=== PATIENT | female | born 1995 | race Caucasian/White ===

== ENCOUNTER 2018-01-01 00:57 | Emergency (ER) | payer OTHER ==
[2018-01-01 01:01] VITALS: PULSE 110
--- NOTE | 2018-01-01 01:50 | ED ---
General Adult HPI - General Chief complaint: Chest Pain Stated complaint: CHEST PAIN Time Seen by Provider: 01/01/18 01:00 Source: patient, RN notes reviewed Mode of arrival: ambulatory Limitations: no limitations - History of Present Illness Initial comments: This is a 22-year-old female presents emergency Department with left-sided chest pain there's been ongoing for years. Patient states it happened again tonight and it went away and currently she doesn't have any pain. Patient states she's not short of breath or having difficulty breathing. Patient states it normally comes and goes on its own and she never takes any medication for. Patient denies any recent fever chills or cough. Patient denies any injury or trauma. Patient denies any calf pain or leg swelling. - Related Data Previous Rx's Medication Instructions Recorded Ibuprofen [Motrin] 600 mg PO Q6HR PRN #20 tab 01/01/18 Allergies Allergy/AdvReac Type Severity Reaction Status Date / Time No Known Allergies Allergy Verified 01/01/18 01:01 Review of Systems ROS Statement: Those systems with pertinent positive or pertinent negative responses have been documented in the HPI. ROS Other: All systems not noted in ROS Statement are negative. Past Medical History Past Medical History: No Reported History History of Any Multi-Drug Resistant Organisms: None Reported Past Surgical History: No Surgical Hx Reported Past Psychological History: ADD/ADHD Smoking Status: Never smoker Past Alcohol Use History: None Reported Past Drug Use History: None Reported General Exam - General Exam Comments Initial Comments: GENERAL: Patient is well-developed and well-nourished. Patient is nontoxic and well- hydrated and is in no acute distress. ENT: Neck is soft and supple. No significant lymphadenopathy is noted. Oropharynx is clear. Moist mucous membranes. Neck has full range of motion without eliciting any pain. EYES: The sclera were anicteric and conjunctiva were pink and moist. Extraocular movements were intact and pupils were equal round and reactive to light. Eyelids were unremarkable. PULMONARY: Unlabored respirations. Good breath sounds bilaterally. No audible rales rhonchi or wheezing was noted. CARDIOVASCULAR: There is a regular rate and rhythm without any murmurs gallops or rubs. [id number] ABDOMEN: Soft and nontender with normal bowel sounds. No palpable organomegaly was noted. There is no palpable pulsatile mass. SKIN: Skin is clear with no lesions or rashes and otherwise unremarkable. NEUROLOGIC: Patient is alert and oriented x3. Cranial nerves II through XII are grossly intact. Motor and sensory are also intact. Normal speech, volume and content. Symmetrical smile.[id number] MUSCULOSKELETAL: Normal extremities with adequate strength and full range of motion. No lower extremity swelling or edema. No calf tenderness. LYMPHATICS: No significant lymphadenopathy is noted PSYCHIATRIC: Normal psychiatric evaluation. Limitations: no limitations Course Vital Signs 01/01/18 01/01/18 00:59 01:55 Temperature 98.7 F 99.0 F Pulse Rate 110 H Respiratory 18 16 Rate Blood Pressure 110/77 O2 Sat by Pulse 99 Oximetry Medical Decision Making - Medical Decision Making EKG shows a normal sinus rhythm at 87 bpm MS interval is 142 QRS is 76 QT intervals 346 QTC is 416. Patient's EKG shows no ST segment elevation or depression. Chest x-ray shows no acute abnormality. Patient's pain is reproducible I believe the chest wall pain. Disposition Clinical Impression: Chest wall pain Disposition: HOME SELF-CARE Condition: Good Instructions: Chest Wall Pain (ED) Prescriptions: Ibuprofen [Motrin] 600 mg PO Q6HR PRN #20 tab PRN Reason: For pain Is patient prescribed a controlled substance at d/c from ED?: No Referrals: Akhil Pearson MD [Primary Care Provider] - 1-2 days Time of Disposition: 02:43
[2018-01-01 01:59] VITALS: RESP 16
--- NOTE | 2018-01-01 02:32 | XR ---
EXAMINATION TYPE: XR chest 2V DATE OF EXAM: 01/01/2018 COMPARISON: NONE HISTORY: Chest pain TECHNIQUE: Frontal and lateral views of the chest are obtained. FINDINGS: Heart and mediastinum are normal. Lungs are clear. Diaphragm is normal. Bony thorax is nor mal. There are chest leads. IMPRESSION: Normal chest.
[2018-01-01 03:13] VITALS: BP 104/62; TEMP 97.8
== END 2018-01-01 03:18 | disposition home or self-care (01) ==
LOC: EC 00:57
DX: R07.89 Other chest pain (principal)
CPT/HCPCS: 71046; 93005; 99285

== ENCOUNTER 2018-12-05 15:57 | Emergency (ER) | payer OTHER ==
[2018-12-05 16:01] VITALS: BP 109/74; PULSE 82; RESP 18; TEMP 98.1
--- NOTE | 2018-12-05 16:23 | ED ---
General Adult HPI - General Chief complaint: Urogenital Stated complaint: 6 WEEKS PREG, POSS UTI Time Seen by Provider: 12/05/18 16:09 Source: patient, RN notes reviewed Mode of arrival: ambulatory Limitations: no limitations - History of Present Illness Initial comments: 22-year-old female presents to the emergency department for a chief complaint of possible UTI. Patient states she has had these symptoms for about one week. Patient states she is expressing urinary urgency as well as a burning with urination. Patient is complaining of suprapubic pressure as well. Denies any significant abdominal pain. No nausea or vomiting. Denies any back pain. Patient is currently 6 weeks . 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 Patient denies fevers or chills. Patient has not yet been tested for STDs. States she was tested 3 years ago and was negative. Patient has no other complaints at this time including shortness of breath, chest pain, abdominal pain, nausea or vomiting, headache, or visual emma nges. - Related Data Previous Rx's Medication Instructions Recorded Ibuprofen [Motrin] 600 mg PO Q6HR PRN #20 tab 01/01/18 Allergies Allergy/AdvReac Type Severity Reaction Status Date / Time No Known Allergies Allergy Verified 12/05/18 16:01 Review of Systems ROS Statement: Those systems with pertinent positive or pertinent negative responses have been documented in the HPI. ROS Other: All systems not noted in ROS Statement are negative. Past Medical History Past Medical History: No Reported History History of Any Multi-Drug Resistant Organisms: None Reported Past Surgical History: No Surgical Hx Reported Past Psychological History: ADD/ADHD Smoking Status: Never smoker Past Alcohol Use History: None Reported Past Drug Use History: None Reported General Exam Limitations: no limitations General appearance: alert, in no apparent distress Head exam: Present: atraumatic, normocephalic, normal inspection Eye exam: Present: normal appearance, PERRL, EOMI. Absent: scleral icterus, conjunctival injection, periorbital swelling ENT exam: Present: normal exam, mucous membranes moist Neck exam: Present: normal inspection, full ROM. Absent: tenderness, meningismus, lymphadenopathy Respiratory exam: Present: normal lung sounds bilaterally. Absent: respiratory distress, wheezes, rales, rhonchi, stridor Cardiovascular Exam: Present: regular rate, normal rhythm, normal heart sounds. Absent: systolic murmur, diastolic murmur, rubs, gallop, clicks GI/Abdominal exam: Present: soft, tenderness (Minimal suprapubic tenderness), normal bowel sounds. Absent: distended, guarding, rebound, rigid Neurological exam: Present: alert, oriented X3, CN II-XII intact Psychiatric exam: Present: normal affect, normal mood Course Vital Signs 12/05/18 15:59 Temperature 98.1 F Pulse Rate 82 Respiratory 18 Rate Blood Pressure 109/74 O2 Sat by Pulse 98 Oximetry Medical Decision Making - Medical Decision Making 22-year-old female presents to the emergency department for a chief complaint of dysuria and urinary frequency. No significant concern for STDs. Mild suprapubic tenderness. Urine is negative for evidence of infection. Therefore CBC CMP were ordered which are negative. Ultrasound shows viable IUP corresponding with 6 weeks 1 day. Patient denies any vaginal bleeding whatsoever. At this time urine will be cultured for gonorrhea chlamydia. Patient self swab for tremors which were negative. Gonorrhea and chlamydia are pending. Patient will follow up with [facility] OPERATOR HELPER as she is established with Dr. Leonard. She will return here if she has any worsening symptoms. - Lab Data Result diagrams: 12/05/18 17:08 12/05/18 17:08 Lab Results 12/05/18 12/05/18 12/05/18 Range/Units 16:20 16:20 16:20 WBC (3.8-10.6) k/uL RBC (3.80-5.40) m/uL Hgb (11.4-16.0) gm/dL Hct (34.0-46.0) % MCV (80.0-100.0) fL MCH (25.0-35.0) pg MCHC (31.0-37.0) g/dL RDW (11.5-15.5) % Plt Count (150-450) k/uL Neutrophils % % Lymphocytes % % Monocytes % % Eosinophils % % Basophils % % Neutrophils # (1.3-7.7) k/uL Lymphocytes # (1.0-4.8) k/uL Monocytes # (0-1.0) k/uL Eosinophils # (0-0.7) k/uL Basophils # (0-0.2) k/uL Sodium (137-145) mmol/L Potassium (3.5-5.1) mmol/L Chloride (98-107) mmol/L Carbon Dioxide (22-30) mmol/L Anion Gap mmol/L BUN (7-17) mg/dL Creatinine (0.52-1.04) mg/dL Est GFR (CKD-EPI)AfAm (>60 ml/min/1.73 sqM) Est GFR (CKD-EPI)NonAf (>60 ml/min/1.73 sqM) Glucose (74-99) mg/dL Calcium (8.4-10.2) mg/dL Total Bilirubin (0.2-1.3) mg/dL AST (14-36) U/L ALT (9-52) U/L Alkaline Phosphatase (38-126) U/L Total Protein (6.3-8.2) g/dL Albumin (3.5-5.0) g/dL HCG, Quant mIU/mL Urine Color Yellow Urine Appearance Cloudy H (Clear) Urine pH 5.5 (5.0-8.0) Ur Specific [place] 1.023 (1.001-1.035) Urine Protein Negative (Negative) Urine Glucose (UA) Negative (Negative) Urine Ketones Trace H (Negative) Urine Blood Negative (Negative) Urine Nitrite Negative (Negative) Urine Bilirubin Negative (Negative) Urine Urobilinogen <2.0 (<2.0) mg/dL Ur Leukocyte Esterase Negative (Negative) Urine RBC <1 (0-5) /hpf Urine WBC 1 (0-5) /hpf Ur Squamous Epith Cells 13 H (0-4) /hpf Urine Bacteria Occasional H (None) /hpf Urine Mucus Few H (None) /hpf Urine HCG, Qual Detected (Not Detectd) Trichomonas Ag (Rapid) Negative (Negative) 12/05/18 12/05/18 12/05/18 Range/Units 17:08 17:08 17:08 WBC 8.6 (3.8-10.6) k/uL RBC 4.47 (3.80-5.40) m/uL Hgb 14.2 (11.4-16.0) gm/dL Hct 41.0 (34.0-46.0) % MCV 91.9 (80.0-100.0) fL MCH 31.8 (25.0-35.0) pg MCHC 34.6 (31.0-37.0) g/dL RDW 12.3 (11.5-15.5) % Plt Count 380 (150-450) k/uL Neutrophils % 67 % Lymphocytes % 25 % Monocytes % 5 % Eosinophils % 1 % Basophils % 0 % Neutrophils # 5.7 (1.3-7.7) k/uL Lymphocytes # 2.1 (1.0-4.8) k/uL Monocytes # 0.5 (0-1.0) k/uL Eosinophils # 0.1 (0-0.7) k/uL Basophils # 0.0 (0-0.2) k/uL Sodium 138 (137-145) mmol/L Potassium 4.1 (3.5-5.1) mmol/L Chloride 105 (98-107) mmol/L Carbon Dioxide 22 (22-30) mmol/L Anion Gap 11 mmol/L BUN 9 (7-17) mg/dL Creatinine 0.50 L (0.52-1.04) mg/dL Est GFR (CKD-EPI)AfAm >90 (>60 ml/min/1.73 sqM) Est GFR (CKD-EPI)NonAf >90 (>60 ml/min/1.73 sqM) Glucose 78 (74-99) mg/dL Calcium 10.1 (8.4-10.2) mg/dL Total Bilirubin 0.8 (0.2-1.3) mg/dL AST 27 (14-36) U/L ALT 36 (9-52) U/L Alkaline Phosphatase 60 (38-126) U/L Total Protein 7.7 (6.3-8.2) g/dL Albumin 4.6 (3.5-5.0) g/dL HCG, Quant 03025.1 mIU/mL Urine Color Yellow Urine Appearance Clear (Clear) Urine pH 5.5 (5.0-8.0) Ur Specific [place] 1.022 (1.001-1.035) Urine Protein Negative (Negative) Urine Glucose (UA) Negative (Negative) Urine Ketones Negative (Negative) Urine Blood Negative (Negative) Urine Nitrite Negative (Negative) Urine Bilirubin Negative (Negative) Urine Urobilinogen <2.0 (<2.0) mg/dL Ur Leukocyte Esterase Negative (Negative) Urine RBC (0-5) /hpf Urine WBC (0-5) /hpf Ur Squamous Epith Cells (0-4) /hpf Urine Bacteria (None) /hpf Urine Mucus (None) /hpf Urine HCG, Qual (Not Detectd) Trichomonas Ag (Rapid) (Negative) Disposition Clinical Impression: Intrauterine Disposition: HOME SELF-CARE Condition: Good Instructions (If sedation given, give patient instructions): (ED) Additional Instructions: Please follow up for culture results 2 days. Please return here if you have any worsening symptoms. Otherwise follow-up with her OB in 1-2 days. Is patient prescribed a controlled substance at d/c from ED?: No Referrals: Akhil Pearson MD [Primary Care Provider] - 1-2 days Time of Disposition: 19:00
[2018-12-05 16:43] LABS: Appearance,Urine Cloudy (Clear); Bacteria,Urine Occasional /hpf; Bilirubin,Urine Negative (Negative); Blood,Urine Negative (Negative); Color,Urine Yellow; Glucose,Urine (UA) Negative (Negative); Ketones,Urine Trace (Negative); Leukocyte Esterase,Urine Negative (Negative); Mucus,Urine Few /hpf; Nitrite,Urine Negative (Negative); PH, Urine 5.5 (5.0-8.0); Protein,Urine Negative (Negative); RBC,Urine <1 /hpf (0-5); Specific Gravity,Urine 1.023 (1.001-1.035); Squamous Epithelial Cell,Urine 13 /hpf (0-4); Urobilinogen,Urine <2.0 mg/dL (<2.0); WBC,Urine 1 /hpf (0-5)
[2018-12-05] MEDS ORDERED: SODIUM CHLORIDE 0.9% 1,000 ML IV ONE (17:00)
[2018-12-05 17:21] LABS: Basophils % (A) 0 %; Eosinophils # (A) 0.1 k/uL (0-0.7); Eosinophils % (A) 1 %; HGB 14.2 gm/dL (11.4-16.0); Lymphocytes # (A) 2.1 k/uL (1.0-4.8); Lymphocytes % (A) 25 %; MCH 31.8 pg (25.0-35.0); MCHC 34.6 g/dL (31.0-37.0); MCV 91.9 fL (80.0-100.0); Mean Platelet Volume 6.1; Monocytes # (A) 0.5 k/uL (0-1.0); Monocytes % (A) 5 %; Neutrophils # (A) 5.7 k/uL (1.3-7.7); Neutrophils % (A) 67 %; Platelet Count 380 k/uL (150-450); RBC 4.47 m/uL (3.80-5.40); RDW 12.3 % (11.5-15.5); WBC 8.6 k/uL (3.8-10.6)
[2018-12-05 17:22] LABS: Appearance,Urine Clear (Clear); Bilirubin,Urine Negative (Negative); Blood,Urine Negative (Negative); Color,Urine Yellow; Glucose,Urine (UA) Negative (Negative); Ketones,Urine Negative (Negative); Leukocyte Esterase,Urine Negative (Negative); Nitrite,Urine Negative (Negative); PH, Urine 5.5 (5.0-8.0); Protein,Urine Negative (Negative); Specific Gravity,Urine 1.022 (1.001-1.035); Urobilinogen,Urine <2.0 mg/dL (<2.0)
[2018-12-05 17:33] LABS: ALT 36 U/L (9-52); AST 27 U/L (14-36); Albumin 4.6 g/dL (3.5-5.0); Alkaline Phosphatase 60 U/L (38-126); Anion Gap 11 mmol/L; Blood Urea Nitrogen 9 mg/dL (7-17); Calcium 10.1 mg/dL (8.4-10.2); Carbon Dioxide 22 mmol/L (22-30); Chloride 105 mmol/L (98-107); Glucose 78 mg/dL (74-99); Potassium 4.1 mmol/L (3.5-5.1); Sodium 138 mmol/L (137-145); Total Bilirubin 0.8 mg/dL (0.2-1.3); Total Protein 7.7 g/dL (6.3-8.2)
[2018-12-05 18:23] LABS: HCG,Quantitative Serum 58540.1 mIU/mL
--- NOTE | 2018-12-05 18:25 | US ---
EXAMINATION TYPE: Transabdominal DATE OF EXAM: 12/05/2018 6:01 PM COMPARISON: NONE CLINICAL HISTORY: pain. Pain possible UTI. EXAM PERFORMED: Transvaginal (TV) and Transabdominal (TA) EXAM MEASUREMENTS: GESTATIONAL AGE / DATING Physician Established: Not yet established ( Dates by LMP: (7 weeks/1 days) EDC: 07/23/2019 Dates by First Scan: No previous this is first scan Dates by Current Scan for: (6 weeks/1 days) EDC: 07/30/2019 MATERNAL ANATOMY Uterus: 9.9 x 4.5 x 6.8 cm Right Ovary: 2.5 x 2.8 x 2.4 cm Left Ovary: 2.5 x 1.1 x 1.6 cm Post CDS / Adnexa: wnl Presence of free fluid: no Presence of corpus luteal cyst: yes right 1.9 x 1.7 x 1.7cm Presence of subchorionic bleed: Yes 1.0 x .8 x 1.0cm. GESTATION / SURVEY CRL: 0.46 cm (6 weeks/1 days) Yolk Sac (normal less than 6mm): 3mm Heart Rate: 160 bpm Rhythm: Normal IUP: Viable IUP Beta HcG (if available): Not available at this time IMPRESSION: VIABLE IUP CORRESPONDING WITH SONOGRAPHIC DATING 6 WEEKS 1 DAY GESTATION AND EDC 07/30/2019.
[2018-12-06 14:47] LABS: N. gonorrhoeae,PCR Negative (Neg,Equiv); Neisseria Source Urine
[2018-12-06 14:55] LABS: C. trachomatis,PCR Negative (Neg,Equiv); Chlamydia trachomatis Source Urine
== END 2018-12-05 19:12 | disposition home or self-care (01) ==
LOC: EC 15:57
DX: O99.89 Other specified diseases and conditions complicating pregnancy, childbirth and the puerperium (principal); R30.0 Dysuria; R39.15 Urgency of urination; Z3A.01 Less than 8 weeks gestation of pregnancy
CPT/HCPCS: 36415; 76801; 76817; 80053; 81001; 81003; 81025; 84702; 85025; 87086; 87491; 87591; 87808; 96360; 99284

== ENCOUNTER 2018-12-30 18:19 | Emergency (ER) | payer OTHER ==
[2018-12-30 18:28] VITALS: PULSE 92
[2018-12-30] MEDS ORDERED: SODIUM CHLORIDE 0.9% 500 ML 500 ML IV STA (18:31)
--- NOTE | 2018-12-30 18:32 | ED ---
GI Bleed HPI - General Chief complaint: GI Bleed Stated complaint: Female Time Seen by Provider: 12/30/18 18:25 Source: patient Mode of arrival: ambulatory Limitations: no limitations - History of Present Illness Initial comments: 23-year-old female presenting today for chief complaint of blood in stools. Patient states she has history of constipation in the past however she feels she has been having increased bowel movements every other day. She states that they are hard at times painful to push out. Patient states she had a painful bowel movement today and noticed blood in his stool. Patient states it was a significant amount presents to the emergency room for evaluation. Patient states she has 100% sure this is not from her vagina. Patient denies any abdominal cramping or pain. Patient denies any nausea vomiting or any other associated symptoms. Patient does state that she has had some sediment in her urine is also concerned about that. Patient is a dysuria urgency frequency or hematuria. Patient has a scheduled appointment with FINANCIAL COMPLIANCE OFFICER on Tuesday. Remaining ROS (-). Upon arrival pt appears well. - Related Data Previous Rx's Medication Instructions Recorded Ibuprofen [Motrin] 600 mg PO Q6HR PRN #20 tab 01/01/18 Allergies Allergy/AdvReac Type Severity Reaction Status Date / Time No Known Allergies Allergy Verified 12/30/18 18:28 Review of Systems ROS Statement: Those systems with pertinent positive or pertinent negative responses have been documented in the HPI. ROS Other: All systems not noted in ROS Statement are negative. Past Medical History Past Medical History: No Reported History History of Any Multi-Drug Resistant Organisms: None Reported Past Surgical History: No Surgical Hx Reported Past Psychological History: ADD/ADHD Smoking Status: Never smoker Past Alcohol Use History: None Reported Past Drug Use History: None Reported General Exam - General Exam Comments Initial Comments: General: The patient is awake and alert, in no distress, and does not appear acutely ill. Eye: Pupils are equal, round and reactive to light, extra-ocular movements are intact. No nystagmus. There is normal conjunctiva bilaterally. No signs of icterus. Ears, nose, mouth and throat: There are moist mucous membranes and no oral lesions. Neck: The neck is supple, there is no tenderness or JVD. Cardiovascular: There is a regular rate and rhythm. No murmur, rub or gallop is appreciated. Respiratory: Lungs are clear to auscultation, respirations are non-labored, breath sounds are equal. No wheezes, stridor, rales, or rhonchi. Gastrointestinal: Soft, non-distended, non-tender abdomen without masses or organomegaly noted. There is no rebound or guarding present. No CVA tenderness. Bowel sounds are unremarkable. Rectal exam revealed a mild distal to the dentate line no gross blood that is tender to touch at the 6oclock position, it does not appear thrombosed, soft. Musculoskeletal: Normal ROM, no tenderness. Strength 5/5. Sensation intact. Pulses equal bilaterally 2+. Neurological: A&O x 3. CN II-XII intact, There are no obvious motor or sensory deficits. Coordination appears grossly intact. Speech is normal. Skin: Skin is warm and dry and no rashes or lesions are noted. Psychiatric: Cooperative, appropriate mood & affect, normal judgment. Limitations: no limitations Course Vital Signs 12/30/18 18:25 Temperature 98.0 F Pulse Rate 92 Respiratory 16 Rate Blood Pressure 121/86 O2 Sat by Pulse 100 Oximetry Medical Decision Making - Medical Decision Making Well-appearing 23-year-old female presenting today for chief complaint of rectal pain. Patient states that she has had history of constipation. Patient states she's had large bowel movement which causes her to have rectal bleeding. Patient states she is positive this is not from her vagina. Patient states it appeared kind of heavy and she was concerned and presents emergency room for evaluation. Upon evaluation there is a hemorrhoid at the 6 o'clock position does not appear thrombosed mildly tender to palpation. No simone blood on examination. No active bleeding signs. Hemoglobin stable. Heart rate within normal limits. Patient appears well hemodynamically stable at this time for patient is stable for discharge with instruction on sitz baths and GI follow-up. Patient is agreeable care plan discharge today no further questions I discussed the case by attending provider Dr. Shaikh who was agreeable with care plan and discharge. - Lab Data Result diagrams: 12/30/18 19:04 12/30/18 19:04 Lab Results 12/30/18 12/30/18 12/30/18 Range/Units 19:04 19:04 19:04 WBC 10.2 (3.8-10.6) k/uL RBC 4.19 (3.80-5.40) m/uL Hgb 13.1 (11.4-16.0) gm/dL Hct 38.1 (34.0-46.0) % MCV 91.0 (80.0-100.0) fL MCH 31.4 (25.0-35.0) pg MCHC 34.5 (31.0-37.0) g/dL RDW 12.7 (11.5-15.5) % Plt Count 405 (150-450) k/uL Neutrophils % 78 % Lymphocytes % 14 % Monocytes % 4 % Eosinophils % 1 % Basophils % 0 % Neutrophils # 7.9 H (1.3-7.7) k/uL Lymphocytes # 1.5 (1.0-4.8) k/uL Monocytes # 0.4 (0-1.0) k/uL Eosinophils # 0.1 (0-0.7) k/uL Basophils # 0.0 (0-0.2) k/uL Sodium 139 (137-145) mmol/L Potassium 3.8 (3.5-5.1) mmol/L Chloride 110 H (98-107) mmol/L Carbon Dioxide 22 (22-30) mmol/L Anion Gap 7 mmol/L BUN 5 L (7-17) mg/dL Creatinine 0.46 L (0.52-1.04) mg/dL Est GFR (CKD-EPI)AfAm >90 (>60 ml/min/1.73 sqM) Est GFR (CKD-EPI)NonAf >90 (>60 ml/min/1.73 sqM) Glucose 88 (74-99) mg/dL Calcium 9.6 (8.4-10.2) mg/dL Total Bilirubin 0.5 (0.2-1.3) mg/dL AST 20 (14-36) U/L ALT 13 (9-52) U/L Alkaline Phosphatase 50 (38-126) U/L Total Protein 7.2 (6.3-8.2) g/dL Albumin 4.3 (3.5-5.0) g/dL Urine Color Urine Appearance (Clear) Urine pH (5.0-8.0) Ur Specific [place] (1.001-1.035) Urine Protein (Negative) Urine Glucose (UA) (Negative) Urine Ketones (Negative) Urine Blood (Negative) Urine Nitrite (Negative) Urine Bilirubin (Negative) Urine Urobilinogen (<2.0) mg/dL Ur Leukocyte Esterase (Negative) Urine RBC (0-5) /hpf Urine WBC (0-5) /hpf Ur Squamous Epith Cells (0-4) /hpf Urine Bacteria (None) /hpf Urine Mucus (None) /hpf Blood Type A Positive Blood Type Recheck [facility] ONLY 12/30/18 Range/Units 19:04 WBC (3.8-10.6) k/uL RBC (3.80-5.40) m/uL Hgb (11.4-16.0) gm/dL Hct (34.0-46.0) % MCV (80.0-100.0) fL MCH (25.0-35.0) pg MCHC (31.0-37.0) g/dL RDW (11.5-15.5) % Plt Count (150-450) k/uL Neutrophils % % Lymphocytes % % Monocytes % % Eosinophils % % Basophils % % Neutrophils # (1.3-7.7) k/uL Lymphocytes # (1.0-4.8) k/uL Monocytes # (0-1.0) k/uL Eosinophils # (0-0.7) k/uL Basophils # (0-0.2) k/uL Sodium (137-145) mmol/L Potassium (3.5-5.1) mmol/L Chloride (98-107) mmol/L Carbon Dioxide (22-30) mmol/L Anion Gap mmol/L BUN (7-17) mg/dL Creatinine (0.52-1.04) mg/dL Est GFR (CKD-EPI)AfAm (>60 ml/min/1.73 sqM) Est GFR (CKD-EPI)NonAf (>60 ml/min/1.73 sqM) Glucose (74-99) mg/dL Calcium (8.4-10.2) mg/dL Total Bilirubin (0.2-1.3) mg/dL AST (14-36) U/L ALT (9-52) U/L Alkaline Phosphatase (38-126) U/L Total Protein (6.3-8.2) g/dL Albumin (3.5-5.0) g/dL Urine Color Yellow Urine Appearance Cloudy H (Clear) Urine pH 5.5 (5.0-8.0) Ur Specific [place] 1.038 H (1.001-1.035) Urine Protein Trace H (Negative) Urine Glucose (UA) Negative (Negative) Urine Ketones Trace H (Negative) Urine Blood Negative (Negative) Urine Nitrite Negative (Negative) Urine Bilirubin Negative (Negative) Urine Urobilinogen <2.0 (<2.0) mg/dL Ur Leukocyte Esterase Trace H (Negative) Urine RBC 1 (0-5) /hpf Urine WBC 4 (0-5) /hpf Ur Squamous Epith Cells 4 (0-4) /hpf Urine Bacteria Occasional H (None) /hpf Urine Mucus Moderate H (None) /hpf Blood Type Blood Type Recheck Disposition Clinical Impression: Hemorrhoid, Rectal bleeding Disposition: HOME SELF-CARE Condition: Good Instructions (If sedation given, give patient instructions): Hemorrhoids (ED) Additional Instructions: Please use medication as discussed. Please follow-up with family doctor in the next 2 days, use sitz baths as discussed. Please return to emergency room if the symptoms increase or worsen or for any other concerns. Is patient prescribed a controlled substance at d/c from ED?: No Referrals: Akhil Pearson MD [Primary Care Provider] - 1-2 days Shan Dueñas MD [STAFF PHYSICIAN] - 1-2 days Time of Disposition: 20:04
[2018-12-30 19:16] LABS: Basophils % (A) 0 %; Eosinophils # (A) 0.1 k/uL (0-0.7); Eosinophils % (A) 1 %; HCT 38.1 % (34.0-46.0); HGB 13.1 gm/dL (11.4-16.0); Lymphocytes # (A) 1.5 k/uL (1.0-4.8); Lymphocytes % (A) 14 %; MCH 31.4 pg (25.0-35.0); MCHC 34.5 g/dL (31.0-37.0); Monocytes # (A) 0.4 k/uL (0-1.0); Monocytes % (A) 4 %; Neutrophils # (A) 7.9 k/uL (1.3-7.7); Neutrophils % (A) 78 %; Platelet Count 405 k/uL (150-450); RBC 4.19 m/uL (3.80-5.40); RDW 12.7 % (11.5-15.5); WBC 10.2 k/uL (3.8-10.6)
[2018-12-30 19:27] LABS: ALT 13 U/L (9-52); AST 20 U/L (14-36); Albumin 4.3 g/dL (3.5-5.0); Alkaline Phosphatase 50 U/L (38-126); Anion Gap 7 mmol/L; Blood Urea Nitrogen 5 mg/dL (7-17); Calcium 9.6 mg/dL (8.4-10.2); Carbon Dioxide 22 mmol/L (22-30); Chloride 110 mmol/L (98-107); Glucose 88 mg/dL (74-99); Potassium 3.8 mmol/L (3.5-5.1); Sodium 139 mmol/L (137-145); Total Bilirubin 0.5 mg/dL (0.2-1.3); Total Protein 7.2 g/dL (6.3-8.2)
[2018-12-30 19:29] LABS: Appearance,Urine Cloudy (Clear); Bacteria,Urine Occasional /hpf; Bilirubin,Urine Negative (Negative); Blood,Urine Negative (Negative); Color,Urine Yellow; Glucose,Urine (UA) Negative (Negative); Ketones,Urine Trace (Negative); Leukocyte Esterase,Urine Trace (Negative); Mucus,Urine Moderate /hpf; Nitrite,Urine Negative (Negative); PH, Urine 5.5 (5.0-8.0); Protein,Urine Trace (Negative); RBC,Urine 1 /hpf (0-5); Specific Gravity,Urine 1.038 (1.001-1.035); Squamous Epithelial Cell,Urine 4 /hpf (0-4); Urobilinogen,Urine <2.0 mg/dL (<2.0); WBC,Urine 4 /hpf (0-5)
[2018-12-30 20:25] VITALS: BP 122/78; RESP 18; TEMP 98.2
== END 2018-12-30 20:23 | disposition home or self-care (01) ==
LOC: EC 18:19
DX: K64.9 Unspecified hemorrhoids (principal); Z87.19 Personal history of other diseases of the digestive system; Z53.8 Procedure and treatment not carried out for other reasons
CPT/HCPCS: 36415; 80053; 81001; 85025; 86900; 86901; 99284

== ENCOUNTER → 2019-04-04 | Outpatient (CLI) | payer OTHER ==
[2019-04-04 12:44] LABS: HCT 33.5 % (34.0-46.0); HGB 11.5 gm/dL (11.4-16.0); MCH 32.8 pg (25.0-35.0); MCHC 34.4 g/dL (31.0-37.0); MCV 95.4 fL (80.0-100.0); Mean Platelet Volume 6.5; Platelet Count 436 k/uL (150-450); RBC 3.51 m/uL (3.80-5.40); RDW 14.3 % (11.5-15.5); WBC 11.3 k/uL (3.8-10.6)
[2019-04-04 19:48] LABS: African American GFR (CKD) 158.1 (60.0-200.0); Non-African American GFR(CKD) 136.4 (60.0-200.0)
[2019-04-04 20:16] LABS: Hepatitis B Surface Antigen Non-Reactive (Non-Reactive)
[2019-04-04 20:26] LABS: HIV 1 AB Non-Reactive (Non-Reactive); HIV 2 AB Non-Reactive (Non-Reactive); HIV AB P24 Non-Reactive (Non-Reactive); HIV P24 AG Non-Reactive (Non-Reactive)
== END | disposition home or self-care (01) ==
LOC: LABWHC1 10:36
PROVIDERS: ATTEND Obstetrics & Gynecology
DX: Z34.82 Encounter for supervision of other normal pregnancy, second trimester (principal)
CPT/HCPCS: 36415; 82565; 82950; 85027; 86762; 86780; 86850; 86900; 86901; 87340; 87390

== ENCOUNTER 2019-05-21 21:00 | Outpatient (CLI) | payer OTHER ==
[2019-05-21 22:03] VITALS: BP 110/66; PULSE 86; RESP 16; TEMP 97.9
--- NOTE | 2019-06-13 08:08 | P.MSEPDOC ---
Presenting Problems - Arrival Data Date of Arrival on Unit: 05/21/19 Time of Arrival on Unit: 21:00 Mode of Transport: Ambulatory - Complaint OB-Reason for Admission/Chief Complaint: Pain Comment: Patient noted some "weird whitish discharge" this evening, that she thinks she lost her mucus plug and she has been a "little crampy" Medical History - Information : 2 Para: 1 Term: 1 : 0 Abortions: Spontaneous or Elective: 0 Number of Living Children: 1 - Gestational Age Gestational Age by LEXUS (wks/days): 31 Weeks and 0 Days Review of Systems - Review of Systems Constitutional: No problems Breast: No problems ENT: No problems Cardiovascular: No problems Respiratory: No problems Gastrointestinal: No problems Genitourinary: No problems Musculoskeletal: No problems Neurological: No problems Skin: No problems Vital Signs - Temperature Temperature: 97.9 F Temperature Source: Temporal Artery Scan - Pulse Pulse Oximetery Pulse Rate: 86 Pulse Assessment Method: Pulse Oximetry - Respirations Respiratory Rate: 16 Oxygen Delivery Method: Room Air - Blood Pressure Sitting Blood Pressure: 110/66 Blood Pressure Mean: 80 Blood Pressure Source: Automatic Cuff Medical Screen Scoring (Pre) - Cervical Exam Dilation: 0 cm = 0 Membranes: Intact - Uterine Contractions Frequency: N/A Duration: N/A Intensity: N/A - Maternal Vital Signs Maternal Temperature: N/A Maternal Blood Pressure: N/A Signs of Preeclampsia: N/A Maternal Respirations: N/A - Maternal Trauma Maternal Trauma: N/A - Assessment - Baby A Baseline FHR: 140 Heart Rate - NICHD Category: Category I (Normal) = 0 NST: Reactive Position: N/A Station: N/A - Total Score - Baby A Total Score - Baby A: 0 - Total Score - Baby B Total Score - Baby B: 0 - Total Score - Baby C Total Score - Baby C: 0 - Level of Risk - Baby A Level of Risk - Baby A: Low (0-5) - Level of Risk - Baby B Level of Risk - Baby B: Low (0-5) - Level of Risk - Baby C Level of Risk - Baby C: Low (0-5) Physician Notification (Pre) - Physician Notified Physician Notified Date: 05/21/19 Physician Notified Time: 21:40 Physician/Practitioner Notifed:: Dr. Riley New Order Received: Yes - Notification Comment Comment: Orders to encourage patient to drink more water, give patient a glass of water and then discharge patient home with instructions, patient to keep regularly scheduled appointment with Dr. Cameron for 05/28 Disposition - Disposition OB Disposition: Discharge to home, Written follow up instructions reviewed Discharge Date: 05/21/19 Discharge Time: 21:50 I agree with the RN Medical Screening Exam: Yes Risk & Benefit of care provided described in d/c instruction: Yes Diagnosis: FALSE LABOR BEFORE 37 COMPLETED WEEKS OF GEST, THIRD TRI
== END 2019-05-21 21:50 | disposition home or self-care (01) ==
LOC: FBPOP 21:00
PROVIDERS: ATTEND Obstetrics & Gynecology
DX: O47.03 False labor before 37 completed weeks of gestation, third trimester (principal); Z3A.31 31 weeks gestation of pregnancy
CPT/HCPCS: 59025; G0463; 99213

== ENCOUNTER 2019-05-30 20:55 | Outpatient (CLI) | payer OTHER ==
[2019-05-30 22:16] VITALS: BP 116/70; PULSE 90; RESP 18; TEMP 96.3
--- NOTE | 2019-05-31 00:04 | P.MSEPDOC ---
Presenting Problems - Arrival Data Date of Arrival on Unit: 05/30/19 Time of Arrival on Unit: 20:55 Mode of Transport: Wheelchair - Complaint OB-Reason for Admission/Chief Complaint: Pain Comment: abd pain and cramping for last 1/2 hour Medical History - Information : 2 Para: 1 Term: 1 : 0 Abortions: Spontaneous or Elective: 0 Number of Living Children: 1 - Gestational Age Gestational Age by LEXUS (wks/days): 32 Weeks and 2 Days - History Complications: Prior Review of Systems - Review of Systems Constitutional: No problems Breast: No problems ENT: No problems Cardiovascular: No problems Respiratory: No problems Gastrointestinal: No problems Genitourinary: No problems Musculoskeletal: No problems Neurological: No problems Skin: No problems Vital Signs - Temperature Temperature: 96.3 F Temperature Source: Temporal Artery Scan - Pulse Right Brachial Pulse Rate: 90 Pulse Assessment Method: Automatic Cuff - Respirations Respiratory Rate: 18 Oxygen Delivery Method: Room Air O2 Sat by Pulse Oximetry: 100 - Blood Pressure Right Arm Blood Pressure: 116/70 Blood Pressure Mean: 85 Blood Pressure Source: Automatic Cuff Medical Screen Scoring (Pre) - Cervical Exam Dilation: Exam Deferred Membranes: Intact - Uterine Contractions Frequency: Scheduled / = 6 Duration: N/A Intensity: N/A - Maternal Vital Signs Maternal Temperature: N/A Maternal Blood Pressure: N/A Signs of Preeclampsia: N/A Maternal Respirations: N/A - Maternal Trauma Maternal Trauma: N/A - Assessment - Baby A Baseline FHR: 145 Heart Rate - NICHD Category: Category I (Normal) = 0 NST: Reactive Position: N/A Station: N/A - Total Score - Baby A Total Score - Baby A: 6 - Total Score - Baby B Total Score - Baby B: 6 - Total Score - Baby C Total Score - Baby C: 6 - Level of Risk - Baby A Level of Risk - Baby A: Medium (6-9) - Level of Risk - Baby B Level of Risk - Baby B: Medium (6-9) - Level of Risk - Baby C Level of Risk - Baby C: Medium (6-9) Physician Notification (Pre) - Physician Notified Physician Notified Date: 05/30/19 Physician Notified Time: 21:28 Physician/Practitioner Notifed:: Dr. Hunt Spoke With: Dr. Hunt New Order Received: Yes - Notification Comment Comment: Dr. Hunt notified of pt's previous c/s, discharge pt home, increase oral fluids, follow up at next scheduled appt Disposition - Disposition OB Disposition: Discharge to home Discharge Date: 05/30/19 Discharge Time: 21:40 I agree with the RN Medical Screening Exam: Yes Risk & Benefit of care provided described in d/c instruction: Yes Diagnosis: FALSE LABOR BEFORE 37 COMPLETED WEEKS OF GEST, THIRD TRI
== END 2019-05-30 21:40 | disposition home or self-care (01) ==
LOC: FBPOP 20:55
PROVIDERS: ATTEND Obstetrics & Gynecology
DX: O47.03 False labor before 37 completed weeks of gestation, third trimester (principal); Z3A.32 32 weeks gestation of pregnancy
CPT/HCPCS: 59025; G0463; 99213

== ENCOUNTER 2019-07-02 18:18 | Outpatient (CLI) | payer OTHER ==
[2019-07-02 19:07] VITALS: BP 133/73; PULSE 95; RESP 18; TEMP 97.2
--- NOTE | 2019-07-03 01:15 | P.MSEPDOC ---
Presenting Problems - Arrival Data Date of Arrival on Unit: 07/02/19 Time of Arrival on Unit: 18:18 Mode of Transport: Ambulatory - Complaint OB-Reason for Admission/Chief Complaint: Other Comment: Pt states she has had some dampness since yesterday Medical History - Information : 2 Para: 1 Term: 1 : 0 Abortions: Spontaneous or Elective: 0 Number of Living Children: 1 - Gestational Age Gestational Age by LEXUS (wks/days): 37 Weeks and 0 Days Review of Systems - Review of Systems Constitutional: No problems Breast: No problems ENT: No problems Cardiovascular: No problems Respiratory: No problems Gastrointestinal: No problems Genitourinary: No problems Musculoskeletal: No problems Neurological: No problems Skin: No problems Vital Signs - Temperature Temperature: 97.2 F Temperature Source: Temporal Artery Scan - Pulse Right Supine Pulse Rate: 95 Pulse Assessment Method: Automatic Cuff - Respirations Respiratory Rate: 18 Oxygen Delivery Method: Room Air O2 Sat by Pulse Oximetry: 100 - Blood Pressure Right Arm Blood Pressure: 133/73 Blood Pressure Mean: 93 Blood Pressure Source: Automatic Cuff Medical Screen Scoring (Pre) - Cervical Exam Dilation: Exam Deferred Effacement: Exam Deferred Membranes: Intact - Uterine Contractions Frequency: N/A - Maternal Vital Signs Maternal Temperature: N/A Maternal Blood Pressure: N/A Signs of Preeclampsia: N/A Maternal Respirations: N/A - Maternal Trauma Maternal Trauma: N/A - Assessment - Baby A Baseline FHR: 145 Heart Rate - NICHD Category: Category I (Normal) = 0 NST: Reactive Position: N/A Station: N/A - Total Score - Baby A Total Score - Baby A: 0 - Total Score - Baby B Total Score - Baby B: 0 - Total Score - Baby C Total Score - Baby C: 0 - Level of Risk - Baby A Level of Risk - Baby A: Low (0-5) - Level of Risk - Baby B Level of Risk - Baby B: Low (0-5) - Level of Risk - Baby C Level of Risk - Baby C: Low (0-5) Physician Notification (Pre) - Physician Notified Physician Notified Date: 07/02/19 Physician Notified Time: 18:58 New Order Received: Yes - Notification Comment Comment: Dr Hunt given report, Amnisure negative, no contractions, NST reactive. Disposition - Disposition OB Disposition: Discharge to home, Written follow up instructions reviewed Discharge Date: 07/02/19 Discharge Time: 19:05 I agree with the RN Medical Screening Exam: Yes Risk & Benefit of care provided described in d/c instruction: Yes Diagnosis: RELATED CONDITIONS, UNSPECIFIED, THIRD TRIMESTER
== END 2019-07-02 19:05 | disposition home or self-care (01) ==
LOC: FBPOP 18:18
PROVIDERS: ATTEND Obstetrics & Gynecology
DX: O26.93 Pregnancy related conditions, unspecified, third trimester (principal); Z3A.37 37 weeks gestation of pregnancy
CPT/HCPCS: 59025; 84112; G0463; 99213

== ENCOUNTER 2019-07-06 17:02 | Outpatient (CLI) | payer OTHER | END 2019-07-06 17:52 | disposition home or self-care (01) | LOC: FBPOP 17:02 | PROVIDERS: ATTEND Obstetrics & Gynecology | DX: O36.8190 Decreased fetal movements, unspecified trimester, not applicable or unspecified (principal) | CPT/HCPCS: 59025; G0463; 99213 ==

== ENCOUNTER 2019-07-18 06:29 | Inpatient (IN) | payer OTHER ==
[2019-07-16 13:46] VITALS: BMI 34.7
--- NOTE | 2019-07-17 17:51 | P.HPOB ---
History of Present Illness H&P Date: 07/17/19 Chief Complaint: Intrauterine at term: Previous section Sandy is a 23-year-old female 2 para 1 having a repeat section. Risks/benefits/alternatives to this procedure were discussed with the patient in detail and all questions were answered for her prior to proceeding to the operating room. Her course otherwise has been generally unremarkable and she is feeling well at this time. Past Medical History Past Medical History: No Reported History Additional Past Medical History / Comment(s): Sl edema ankles. History of Any Multi-Drug Resistant Organisms: None Reported Past Surgical History: Section Past Anesthesia/Blood Transfusion Reactions: No Reported Reaction Smoking Status: Never smoker - Past Family History Mother Family Medical History: No Reported History Medications and Allergies Home Medications Medication Instructions Recorded Confirmed Type Pnv No.95/Ferrous Fum/Folic AC 1 each PO DAILY 05/21/19 07/16/19 History [ Multivitamin Tablet] Allergies Allergy/AdvReac Type Severity Reaction Status Date / Time No Known Allergies Allergy Verified 07/16/19 13:24 Exam Osteopathic Statement: *. No significant issues noted on an osteopathic structural exam other than those noted in the History and Physical/Consult. - OBG Physical Exam Breast: both: normal (no masses) Abdomen: bowel sounds normal, no diffuse tenderness, no bruit present, no guarding noted, no hepatomegaly, no splenomegaly, no mass Vulva: both: normal Vagina: normal moisture, no discharge Cervix: no lesion, no discharge Uterus: normal size, normal contour Adnexa: both: normal Anus/Rectum: normal perianal skin, no rectal mass, no hemorrhoids, heme negative
[2019-07-18] MEDS ORDERED: CITRIC ACID-SODIUM CITRATE 15 ML CUP PO ONE (06:44)
[2019-07-18 06:58] LABS: Basophils % (A) 0 %; Eosinophils # (A) 0.2 k/uL (0-0.7); Eosinophils % (A) 2 %; HCT 35.6 % (34.0-46.0); HGB 12.8 gm/dL (11.4-16.0); Lymphocytes # (A) 1.5 k/uL (1.0-4.8); Lymphocytes % (A) 15 %; MCH 34.4 pg (25.0-35.0); MCV 95.5 fL (80.0-100.0); Mean Platelet Volume 5.2; Monocytes # (A) 0.6 k/uL (0-1.0); Monocytes % (A) 6 %; Neutrophils # (A) 7.2 k/uL (1.3-7.7); Neutrophils % (A) 74 %; Platelet Count 424 k/uL (150-450); RBC 3.73 m/uL (3.80-5.40); RDW 13.3 % (11.5-15.5); WBC 9.6 k/uL (3.8-10.6)
[2019-07-18] MEDS: LACTATED RINGERS 1,000 ML IV SCH ×3 (08:05→17:56)
[2019-07-18] MEDS ORDERED: ePHEDrine SULFATE/0.9% NACL/PF 50 MG/5 ML SYRINGE IV ONE (08:23)
[2019-07-18] MEDS ORDERED: ONDANSETRON 4 MG/2 ML VIAL ONE (08:23)
[2019-07-18] MEDS ORDERED: OXYTOCIN 10 UNIT/ML 1 ML VIAL ONE (08:23)
[2019-07-18] MEDS ORDERED: MORPHINE SULFATE (PF) 0.3 MG/0.3 ML SYR ONE (08:23)
[2019-07-18] MEDS ORDERED: NALBUPHINE 10 MG/ML (1 ML AMP) ONE (08:23)
[2019-07-18] MEDS ORDERED: KETOROLAC 30 MG/ML 1 ML VIAL ONE (08:23)
[2019-07-18] MEDS ORDERED: CELLULOSE,OXIDIZED 1 EACH EACH MISCELLANE ONE (08:45)
[2019-07-18] MEDS ORDERED: ZOLPIDEM 5 MG TAB PO PRN (09:16)
[2019-07-18] MEDS ORDERED: diphenhydrAMINE 50 MG CAP PO PRN (09:16)
[2019-07-18] MEDS ORDERED: METOCLOPRAMIDE 5 MG/ML 2 ML VIAL IVP PRN (09:16)
[2019-07-18] MEDS ORDERED: diphenhydrAMINE 50 MG/ML 1 ML VIAL IVP PRN ×2 (09:16)
[2019-07-18] MEDS ORDERED: ACETAMINOPHEN TAB 325 MG TAB PO PRN (09:16)
[2019-07-18] MEDS ORDERED: NALOXONE 0.4 MG/ML 1 ML VIAL IV PRN (09:16)
[2019-07-18] MEDS ORDERED: HYDROcodone/APAP 7.5-325MG 1 EACH TAB PO PRN (09:16)
[2019-07-18] MEDS ORDERED: ONDANSETRON 4 MG/2 ML VIAL IVP PRN (09:16)
[2019-07-18] MEDS ORDERED: diphenhydrAMINE 25 MG CAP PO PRN (09:16)
--- NOTE | 2019-07-18 09:27 | P.OP ---
Date of Procedure: 07/18/19 Preoperative Diagnosis: Intrauterine at term: Prior section Postoperative Diagnosis: Same with significant adhesions Procedure(s) Performed: Repeat low transverse section and lysis of adhesions Anesthesia: spinal Surgeon: Donovan Cameron Appraiser Art #1: Salina Riley Estimated Blood Loss (ml): 800 Pathology: none sent Condition: stable Disposition: floor Operative Findings: Female scores of 8 and 9 at one and 5 minutes respectively and weight was 7 lbs. 14 oz. Significant adhesions of omentum to anterior abdominal wall and uterus as well as bladder being very high and this lesion's of the lateral abdominal sidewalls down onto the uterine body via the peritoneum Description of Procedure: Patient was taken to the operating suite where a spinal anesthetic was found be adequate. She was prepped and draped in the normal sterile fashion and placed in the dorsal supine position with leftward tilt. Initially a Pfannenstiel skin incision was made and this incision was then carried through to the underlying layer of the fascia with the second knife. Fascia was then nicked in the midline and this opening was then extended extended laterally with Mejia scissors. Superior and inferior aspect of this incision were then grasped tented up and lung and sharply dissected off the operative field. Immediately was noted omentum coming through the fascial layer upon initial dissection and this omentum was adherent to the anterior abdominal wall and peritoneum. Very careful operative dissection was then done verifying bowel was clear of the area and then trying to dissect inferiorly the peritoneum and omentum were adherent down onto the lateral sidewalls of the abdomen and the bladder was adherent superiorly and onto the lateral portions of the uterus. Normal dissection in th e midline to reduce the bladder out of the operative field was not going to work therefore taking the area of scarring and using the Metzenbaum scissors and careful dissection of the scar tissue and peritoneum away from the side of the uterus on both the right and left side was then performed a small partial thickness defect in the uterus did occur during this process just trying to move the omentum and bowel away from the uterus to get it out of the operative field. This was repaired without difficulty and easily was repaired during the closure. Once this was accomplished a bladder blade was placed and a low transverse incision on the uterus was done. The incision was fully developed with a hemostat and then extended bluntly. Due to the limited ability to move the muscles and scar tissue laterally on the head was not coming easily out of the uterine incision therefore a vacuum was placed carefully and inflated to the green area and with no pop offs and using it for less than 15 seconds we are able to guide the head through the incision with pressure on the fundus. Neck was then removed no lacerations or contusions were noted anterior posterior shoulders were then easily delivered followed by the remainder of the baby. Umbilical cord was then clamped cut usual fashion mouth nares bulb suctioned and nursery personnel was present to some care. Placenta was then delivered intact and Pitocin was added to the IV. Uterus was then exteriorized cleared of clots and debris and closed in 2 layers with 0 Vicryl suture. On the right-hand side of the incision on the uterus there was a partial defect which was easily closed using running 0 Vicryl suture and once excellent hemostasis was obtained multiple verifications of clear yellow urine were made and then blood and debris was suctioned from the posterior cul-de-sac. Again inspecting incision line noting it to be dry and without defect uterus was reinserted the abdomen and piece of Interceed was placed over the incision line. Bovie cautery was then used to dissect the omentum off of the anterior abdominal wall on its attachments to the peritoneum and then due to the omentum coming through the peritoneum hemostats were used to delineate the perineum and it was closed with some of the muscle in a running fashion to reapproximate this area to try and keep the omentum from herniating through. Once this was accomplished fascial layer was closed with 0 Vicryl suture one layer of 3-0 Vicryl was placed in deep subcuticular tissues reapproximate the skin Bovie cautery dissection of the underlying tissues was done to free the skin layer so that during closure of the skin using 3-0 Vicryl subcuticularly incision closed well and easily. At the conclusion of the procedure, sponge, lap, needle counts were all correct 2. Patient was then taken to the recovery room in stable and satisfactory condition. Clear yellow urine is again noted at the conclusion of the procedure.
[2019-07-18] MEDS ORDERED: LACTATED RINGERS 1,000 ML IV SCH (09:30)
[2019-07-18] MEDS: KETOROLAC 30 MG/ML 1 ML VIAL IVP PRN (22:01)
[2019-07-19] MEDS: SENNOSIDES-DOCUSATE SODIUM 1 EACH TAB PO SCH ×3 (01:17→20:07)
[2019-07-19] MEDS: KETOROLAC 30 MG/ML 1 ML VIAL IVP PRN ×2 (03:45→10:59)
--- NOTE | 2019-07-19 05:56 | P.PN ---
Progress Note - Text Progress Note Date: 07/19/19 23 yo female status post . Post-op day #1. Patient received intrathecal Duramorph. Patient was seen today, sitting up in bed no complaints, pain VAS score 0/10, no headache, mild itching, no nausea and vomiting. Assessment and plan: Doing well in general no complications from anesthesia.
[2019-07-19 07:48] LABS: Basophils % (A) 0 %; Eosinophils # (A) 0.2 k/uL (0-0.7); Eosinophils % (A) 1 %; HCT 32.6 % (34.0-46.0); HGB 11.5 gm/dL (11.4-16.0); Lymphocytes # (A) 0.9 k/uL (1.0-4.8); Lymphocytes % (A) 7 %; MCH 33.8 pg (25.0-35.0); MCHC 35.3 g/dL (31.0-37.0); MCV 95.9 fL (80.0-100.0); Mean Platelet Volume 5.6; Monocytes # (A) 0.7 k/uL (0-1.0); Monocytes % (A) 6 %; Neutrophils % (A) 84 %; Platelet Count 397 k/uL (150-450); RDW 13.4 % (11.5-15.5); WBC 13.1 k/uL (3.8-10.6)
--- NOTE | 2019-07-19 08:36 | P.PNOBGPC ---
Subjective - Subjective Principal diagnosis: Postop day 1 Interval history: Sandy is doing very well. She is involuting, voiding and tolerating her diet. She voices no complaints. Patient reports: Reports appetite normal, Reports voiding normally, Reports pain well controlled, Reports ambulating normally : doing well Objective - Vital Signs Latest vital signs: Vital Signs Temp Pulse Resp BP Pulse Ox 07/19/19 03:51 98.0 F 97 18 101/64 96 07/19/19 00:00 98.2 F 98 18 110/67 97 07/18/19 20:00 98.7 F 84 18 112/53 99 07/18/19 16:00 98.1 F 85 16 118/70 99 07/18/19 11:20 97.7 F 91 14 117/64 07/18/19 10:53 93 16 114/79 07/18/19 10:24 97.1 F L 85 15 113/57 99 07/18/19 10:09 82 14 115/64 98 07/18/19 09:54 97.6 F 87 16 114/61 97 07/18/19 09:39 86 14 114/63 100 07/18/19 09:24 97 F L 78 14 99/54 Intake and Output 07/18/19 07/19/19 07/19/19 22:59 06:59 14:59 Intake Total 600 Output Total 400 Balance -400 600 Intake: Oral 600 Output: Urine 400 Uretheral (Adam) 400 Other: # Voids 400 200 - Exam Lungs: bilateral: normal Chest: Normal S1, Normal S2 Extremities: Present: normal Abdomen: Present: normal appearance, soft. Absent: distention, tenderness Incision: Present: normal, dry, intact Uterus: Present: normal, firm - Labs Labs: Abnormal Lab Results - Last 24 Hours (Table) 07/19/19 Range/Units 07:13 WBC 13.1 H (3.8-10.6) k/uL RBC 3.40 L (3.80-5.40) m/uL Hct 32.6 L (34.0-46.0) % Neutrophils # 11.0 H (1.3-7.7) k/uL Lymphocytes # 0.9 L (1.0-4.8) k/uL
[2019-07-19] MEDS: IBUPROFEN 600 MG TAB PO PRN ×2 (17:11→23:48)
[2019-07-19] MEDS: LACTATED RINGERS 1,000 ML IV SCH (23:40)
[2019-07-20 01:14] VITALS: RESP 16
[2019-07-20] MEDS: IBUPROFEN 600 MG TAB PO PRN (07:55)
[2019-07-20] MEDS: SENNOSIDES-DOCUSATE SODIUM 1 EACH TAB PO SCH (07:55)
--- NOTE | 2019-07-20 08:29 | P.DS ---
Providers Date of admission: 07/18/19 06:29 Expected date of discharge: 07/20/19 Attending physician: Donovan Cameron Primary care physician: Stated None Hospital Course: Sandy is doing very well postop day 2. She is involuting, voiding and tolerating her diet. She voices no complaints and is requesting discharge to home today. Her vital signs are stable and she is afebrile. Discharge instructions are thoroughly reviewed. Prescriptions for Motrin and [place] were provided. She is also complaining of some sadness and has a history of depression and would like to restart her antidepressant. Prescription for 25 mg of Zoloft has been ports the pharmacy she will follow me in 1 week and we can increase the dose at that time. All other questions are answered for her at this time. She voices no suicidal ideation nor any desired herself or others. On physical exam heart regular, lungs clear, extremities are without pain. Abdomen is soft uterus is firm and lochia is reported be light. Her incision is otherwise clean dry and intact. Assessment postop day 2. Plan discharged home follow up with me in 1 week. Patient Condition at Discharge: Good Plan - Discharge Summary Discharge Rx Participant: No New Discharge Prescriptions: New Ibuprofen [Motrin] 600 mg PO Q6HR PRN #30 tab PRN Reason: Pain Ibuprofen [Motrin] 600 mg PO Q6HR PRN #30 tab PRN Reason: Pain HYDROcodone/APAP 5-325MG [[place] 5-325] 1 tab PO Q4HR PRN #30 tab PRN Reason: Pain Sertraline HCl [Zoloft] 25 mg PO DAILY #10 tab No Action Pnv No.95/Ferrous Fum/Folic AC [ Multivitamin Tablet] 1 each PO DAILY Discharge Medication List Pnv No.95/Ferrous Fum/Folic AC [ Multivitamin Tablet] 1 each PO DAILY 05/21/19 [History] Ibuprofen [Motrin] 600 mg PO Q6HR PRN #30 tab 07/18/19 [Rx] HYDROcodone/APAP 5-325MG [[place] 5-325] 1 tab PO Q4HR PRN #30 tab 07/20/19 [Rx] Ibuprofen [Motrin] 600 mg PO Q6HR PRN #30 tab 07/20/19 [Rx] Sertraline HCl [Zoloft] 25 mg PO DAILY #10 tab 07/20/19 [Rx] Follow up Appointment(s)/Referral(s): Donovan Cameron DO [Doctor of Osteopathic Medicine] - 1 Week Activity/Diet/Wound Care/Special Instructions: No heavy lifting, limit stairs and driving, and pelvic rest. If any high temperatures, heavy bleeding, or severe pain call my office Discharge Disposition: HOME SELF-CARE
[2019-07-20 09:29] VITALS: BP 102/70; PULSE 74; TEMP 97.8
== END 2019-07-20 10:30 | disposition home or self-care (01) | DRG 788 ==
LOC: 4FBP 06:29
PROVIDERS: ADMIT Obstetrics & Gynecology; ATTEND Obstetrics & Gynecology
PROC: 10D00Z1 Extraction of Products of Conception, Low, Open Approach (ICD-10-PCS; principal; 2019-07-18 08:30)
DX: O34.211 Maternal care for low transverse scar from previous cesarean delivery (principal); Z37.0 Single live birth; Z3A.39 39 weeks gestation of pregnancy; O99.345 Other mental disorders complicating the puerperium; F53.0 Postpartum depression; K66.0 Peritoneal adhesions (postprocedural) (postinfection)
CPT/HCPCS: 85025; 86850; 86900; 86901

== ENCOUNTER → 2019-08-22 | Outpatient (CLI) | payer OTHER ==
--- NOTE | 2019-08-22 15:49 | US ---
EXAMINATION TYPE: US pelvic complete DATE OF EXAM: 08/22/2019 COMPARISON: NONE CLINICAL HISTORY: R10.2 Pelvic pain. post 4 weeks, vaginal odor with dark bloody discharge, no pain, no fever TECHNIQUE: TA. Transabdominal sonographic images of the pelvis were acquired. Date of LMP: 10+months ago EXAM MEASUREMENTS: Uterus: 10.2 x 4.3 x 7.5 cm Endometrial Stripe: 0.5 cm Right Ovary: 2.5 x 2.1 x 1.8 cm Left Ovary: 2.1 x 2.1 x 1.8cm 1. Uterus: Anteverted wnl 2. Endometrium: wnl 3. Right Ovary: 1.8cm follicle seen 4. Left Ovary: wnl 5. Bilateral Adnexa: wnl 6. Posterior cul-de-sac: wnl IMPRESSION: 1. Right ovarian cyst.
== END | disposition home or self-care (01) ==
LOC: RADUSWWP 14:56
PROVIDERS: ATTEND Obstetrics & Gynecology
DX: N83.201 Unspecified ovarian cyst, right side (principal)
CPT/HCPCS: 76856

== ENCOUNTER 2019-11-23 23:38 | Emergency (ER) | payer OTHER ==
[2019-11-23 23:47] VITALS: BP 117/74; PULSE 91; RESP 18; TEMP 98.2
[2019-11-24] MEDS ORDERED: KETOROLAC 30 MG/ML 1 ML VIAL IM STA (00:04)
[2019-11-24 00:20] LABS: Appearance,Urine Clear (Clear); Bilirubin,Urine Negative (Negative); Blood,Urine Moderate (Negative); Color,Urine Yellow; Glucose,Urine (UA) Negative (Negative); Ketones,Urine Negative (Negative); Leukocyte Esterase,Urine Small (Negative); Mucus,Urine Rare /hpf; Nitrite,Urine Negative (Negative); PH, Urine 5.5 (5.0-8.0); Protein,Urine Negative (Negative); RBC,Urine 2 /hpf (0-5); Specific Gravity,Urine 1.027 (1.001-1.035); Squamous Epithelial Cell,Urine 5 /hpf (0-4); Urobilinogen,Urine <2.0 mg/dL (<2.0); WBC,Urine 4 /hpf (0-5)
--- NOTE | 2019-11-24 00:22 | ED ---
General Adult HPI - General Chief complaint: Vaginal Bleeding Stated complaint: Vaginal bleeding Time Seen by Provider: 11/23/19 23:58 Source: patient Mode of arrival: ambulatory Limitations: no limitations - History of Present Illness Initial comments: 23-year-old female patient presents to the emergency department today for evaluation of vaginal bleeding. Patient states this has been light brown to dark brown in color. States she is changing her pad one to 2 times per day. States that she did have a vaginal delivery in August and shortly after had a nexplanon implant placed to her left arm. She states that her last menstrual period was in September. States she started having bleeding two days ago. Denies any passage of blood clots. States she was having lower abdominal cramping worse than her usual periods. She denies any back pain. Patient denies any recent rash, fever, chills, cough, shortness of breath, chest pain, nausea, vomiting, d iarrhea, constipation, numbness, tingling, dizziness, weakness, hematuria, dysuria, urinary urgency, urinary frequency, headache, visual changes, or any other complaints. Did take a test at home which was negative. - Related Data Home Medications Medication Instructions Recorded Confirmed Pnv No.95/Ferrous Fum/Folic AC 1 each PO DAILY 05/21/19 07/18/19 [ Multivitamin Tablet] Previous Rx's Medication Instructions Recorded Ibuprofen [Motrin] 600 mg PO Q6HR PRN #30 tab 07/18/19 HYDROcodone/APAP 5-325MG [[place] 1 tab PO Q4HR PRN #30 tab 07/20/19 5-325] Ibuprofen [Motrin] 600 mg PO Q6HR PRN #30 tab 07/20/19 Sertraline HCl [Zoloft] 25 mg PO DAILY #10 tab 07/20/19 Allergies Allergy/AdvReac Type Severity Reaction Status Date / Time No Known Allergies Allergy Verified 11/23/19 23:47 Review of Systems ROS Statement: Those systems with pertinent positive or pertinent negative responses have been documented in the HPI. ROS Other: All systems not noted in ROS Statement are negative. Past Medical History Past Medical History: No Reported History Additional Past Medical History / Comment(s): Sl edema ankles. History of Any Multi-Drug Resistant Organisms: None Reported Past Surgical History: Section Past Anesthesia/Blood Transfusion Reactions: No Reported Reaction Past Psychological History: ADD/ADHD, Depression Smoking Status: Never smoker Past Alcohol Use History: None Reported Past Drug Use History: None Reported - Past Family History Mother Family Medical History: No Reported History General Exam Limitations: no limitations General appearance: alert, in no apparent distress, other (This is a well- developed, well-nourished adult female patient in no acute distress. Vital signs upon presentation are temperature 98.2F, pulse 91, respirations 18, blood pressure 117/74, pulse ox 98% on room air.) Eye exam: Present: normal appearance, PERRL, EOMI. Absent: scleral icterus, conjunctival injection, periorbital swelling ENT exam: Present: normal exam, normal oropharynx, mucous membranes moist Respiratory exam: Present: normal lung sounds bilaterally. Absent: respiratory distress, wheezes, rales, rhonchi, stridor Cardiovascular Exam: Present: regular rate, normal rhythm, normal heart sounds. Absent: systolic murmur, diastolic murmur, rubs, gallop, clicks GI/Abdominal exam: Present: soft, tenderness (Suprapubic), normal bowel sounds. Absent: distended, guarding, rebound, rigid Neurological exam: Present: alert, oriented X3, CN II-XII intact Psychiatric exam: Present: normal affect, normal mood Skin exam: Present: warm, dry, intact, normal color. Absent: rash Course Vital Signs 11/23/19 23:45 Temperature 98.2 F Pulse Rate 91 Respiratory 18 Rate Blood Pressure 117/74 O2 Sat by Pulse 98 Oximetry Medical Decision Making - Medical Decision Making 23-year-old female patient presents to the emergency department today for evaluation of vaginal bleeding. Patient is changing her pad one to 2 times per day. States the bleeding is light brown to dark brown in color. Physical examination is unremarkable. Urinalysis shows some blood, hCG is negative. Patient is given IM Toradol for pain relief. I did discuss that this is most likely her period which will be different now that she has the nexplanon implant which can cause changes to her bleeding and cramping. She is instructed to follow-up with her [facility] for recheck as needed. She is instructed follow up with her primary care physician for recheck in 1-2 days. Return parameters were discussed in detail. She verbalizes understanding and agrees with this plan. - Lab Data Lab Results 11/24/19 11/24/19 Range/Units 00:00 00:00 Urine Color Yellow Urine Appearance Clear (Clear) Urine pH 5.5 (5.0-8.0) Ur Specific [place] 1.027 (1.001-1.035) Urine Protein Negative (Negative) Urine Glucose (UA) Negative (Negative) Urine Ketones Negative (Negative) Urine Blood Moderate H (Negative) Urine Nitrite Negative (Negative) Urine Bilirubin Negative (Negative) Urine Urobilinogen <2.0 (<2.0) mg/dL Ur Leukocyte Esterase Small H (Negative) Urine RBC 2 (0-5) /hpf Urine WBC 4 (0-5) /hpf Ur Squamous Epith Cells 5 H (0-4) /hpf Urine Mucus Rare H (None) /hpf Urine HCG, Qual Not Detected (Not Detectd) Disposition Clinical Impression: Menstruation Disposition: HOME SELF-CARE Condition: Good Instructions (If sedation given, give patient instructions): Dysmenorrhea (ED) Additional Instructions: Increase fluids. Take tylenol and motrin for pain control. Follow up with your OBGYN as needed. Follow up with the primary care physician for recheck in 1-2 days. Return to the emergency department for any new, worsening, or concerning symptoms. Is patient prescribed a controlled substance at d/c from ED?: No Referrals: Akhil Pearson MD [Primary Care Provider] - 1-2 days Time of Disposition: 00:22
== END 2019-11-24 00:50 | disposition home or self-care (01) ==
LOC: EC 23:38
DX: N93.9 Abnormal uterine and vaginal bleeding, unspecified (principal); R10.30 Lower abdominal pain, unspecified; Z97.5 Presence of (intrauterine) contraceptive device
CPT/HCPCS: 81001; 81025; 99284; 96372; J1885

== ENCOUNTER 2020-01-23 16:32 | Emergency (ER) | payer OTHER ==
[2020-01-23 16:50] VITALS: BP 122/64; PULSE 91; RESP 16; TEMP 99.8
[2020-01-23 17:16] LABS: Appearance,Urine Clear (Clear); Bilirubin,Urine Negative (Negative); Blood,Urine Negative (Negative); Color,Urine Yellow; Glucose,Urine (UA) Negative (Negative); Ketones,Urine Negative (Negative); Leukocyte Esterase,Urine Negative (Negative); Nitrite,Urine Negative (Negative); PH, Urine 5.5 (5.0-8.0); Protein,Urine Negative (Negative); Specific Gravity,Urine 1.023 (1.001-1.035); Urobilinogen,Urine <2.0 mg/dL (<2.0)
--- NOTE | 2020-01-23 17:31 | ED ---
General Adult HPI - General Chief complaint: Recheck/Abnormal Lab/Rx Stated complaint: Poss Time Seen by Provider: 01/23/20 16:38 Source: patient, family Mode of arrival: ambulatory Limitations: no limitations - History of Present Illness Initial comments: Patient is a 24-year-old female presenting to the emergency department requesting a test. Patient states she has been having " symptoms" including nausea bilateral breast tenderness for the past week. Patient states she took 2 negative test and then had a faintly positive test yesterday. She is just wanting confirmation. She denies any abdominal pain, vaginal bleeding. She is on control, implanon, placed 6 months ago. She denies any other complaints at this time. - Related Data Home Medications Medication Instructions Recorded Confirmed Pnv No.95/Ferrous Fum/Folic AC 1 each PO DAILY 05/21/19 07/18/19 [ Multivitamin Tablet] Previous Rx's Medication Instructions Recorded Ibuprofen [Motrin] 600 mg PO Q6HR PRN #30 tab 07/18/19 HYDROcodone/APAP 5-325MG [[place] 1 tab PO Q4HR PRN #30 tab 07/20/19 5-325] Ibuprofen [Motrin] 600 mg PO Q6HR PRN #30 tab 07/20/19 Sertraline HCl [Zoloft] 25 mg PO DAILY #10 tab 07/20/19 Allergies Allergy/AdvReac Type Severity Reaction Status Date / Time No Known Allergies Allergy Verified 11/23/19 23:47 Review of Systems ROS Statement: Those systems with pertinent positive or pertinent negative responses have been documented in the HPI. ROS Other: All systems not noted in ROS Statement are negative. Past Medical History Past Medical History: No Reported History Additional Past Medical History / Comment(s): Sl edema ankles. History of Any Multi-Drug Resistant Organisms: None Reported Past Surgical History: Section Past Anesthesia/Blood Transfusion Reactions: No Reported Reaction Past Psychological History: ADD/ADHD, Depression Smoking Status: Never smoker Past Alcohol Use History: None Reported Past Drug Use History: None Reported - Past Family History Mother Family Medical History: No Reported History General Exam - General Exam Comments Initial Comments: GENERAL: Well-appearing, well-nourished and in no acute distress. HEAD: Atraumatic, normocephalic. EYES: Pupils equal round and reactive to light, extraocular movements intact, sclera anicteric, conjunctiva are normal. ENT: TMs normal, nares patent, oropharynx clear without exudates. Moist mucous membranes. NECK: Normal range of motion, supple without lymphadenopathy or JVD. LUNGS: Breath sounds clear to auscultation bilaterally and equal. No wheezes rales or rhonchi. HEART: Regular rate and rhythm without murmurs, rubs or gallops. ABDOMEN: Soft, nontender, normoactive bowel sounds. No guarding, no rebound. No masses appreciated. : Deferred EXTREMITIES: Normal range of motion, no pitting or edema. No clubbing or cyanosis. NEUROLOGICAL: Normal speech, normal gait. PSYCH: Normal mood, normal affect. SKIN: Warm, Dry, normal turgor, no rashes or lesions noted. Limitations: no limitations Course Vital Signs 01/23/20 16:37 Temperature 99.8 F H Pulse Rate 91 Respiratory 16 Rate Blood Pressure 122/64 O2 Sat by Pulse 98 Oximetry Medical Decision Making - Medical Decision Making Patient is 24-year-old female here for test. Her exam is unremarkable. Patient's UA is completely normal, no signs of infection, hCG is not detected. Discussed these findings with the patient. Patient is stable for discharge. - Lab Data Lab Results 01/23/20 01/23/20 Range/Units 17:00 17:00 Urine Color Yellow Urine Appearance Clear (Clear) Urine pH 5.5 (5.0-8.0) Ur Specific [place] 1.023 (1.001-1.035) Urine Protein Negative (Negative) Urine Glucose (UA) Negative (Negative) Urine Ketones Negative (Negative) Urine Blood Negative (Negative) Urine Nitrite Negative (Negative) Urine Bilirubin Negative (Negative) Urine Urobilinogen <2.0 (<2.0) mg/dL Ur Leukocyte Esterase Negative (Negative) Urine HCG, Qual Not Detected (Not Detectd) Disposition Clinical Impression: test negative, Nausea Disposition: HOME SELF-CARE Condition: Stable Instructions (If sedation given, give patient instructions): Normal Exam (ED) Additional Instructions: Please return to the Emergency Department if symptoms worsen or any other concerns. Is patient prescribed a controlled substance at d/c from ED?: No Referrals: Akhil Pearson MD [Primary Care Provider] - 1-2 days
== END 2020-01-23 17:37 | disposition home or self-care (01) ==
LOC: EC 16:32
DX: R11.0 Nausea (principal); Z32.02 Encounter for pregnancy test, result negative; Z79.3 Long term (current) use of hormonal contraceptives; Z79.899 Other long term (current) drug therapy; Z98.890 Other specified postprocedural states
CPT/HCPCS: 81003; 81025; 99283

== ENCOUNTER 2020-12-04 17:36 | Emergency (ER) | payer OTHER ==
[2020-12-04 17:46] VITALS: BP 101/74; PULSE 89; RESP 18; TEMP 98.2
--- NOTE | 2020-12-04 18:15 | ED ---
General Adult HPI - General Chief complaint: Recheck/Abnormal Lab/Rx Stated complaint: no taste or smell Time Seen by Provider: 12/04/20 17:50 Source: patient, RN notes reviewed Mode of arrival: ambulatory Limitations: no limitations - History of Present Illness Initial comments: 24-year-old female presents emergency Department with chief complaint of needing covid testing. Patient states her is positive states that she recently lost her sense of taste and smell. Patient states she has mild congestionand chest pain shortness breath abdominal issues. Patient has no past medical history. Patient denies any fevers or chills - Related Data Home Medications Medication Instructions Recorded Confirmed Pnv No.95/Ferrous Fum/Folic AC 1 each PO DAILY 05/21/19 07/18/19 [ Multivitamin Tablet] Previous Rx's Medication Instructions Recorded Ibuprofen [Motrin] 600 mg PO Q6HR PRN #30 tab 07/18/19 HYDROcodone/APAP 5-325MG [[place] 1 tab PO Q4HR PRN #30 tab 07/20/19 5-325] Ibuprofen [Motrin] 600 mg PO Q6HR PRN #30 tab 07/20/19 Sertraline HCl [Zoloft] 25 mg PO DAILY #10 tab 07/20/19 Allergies Allergy/AdvReac Type Severity Reaction Status Date / Time No Known Allergies Allergy Verified 12/04/20 17:46 Review of Systems ROS Statement: Those systems with pertinent positive or pertinent negative responses have been documented in the HPI. ROS Other: All systems not noted in ROS Statement are negative. Past Medical History Past Medical History: No Reported History Additional Past Medical History / Comment(s): Sl edema ankles. History of Any Multi-Drug Resistant Organisms: None Reported Past Surgical History: Section Past Anesthesia/Blood Transfusion Reactions: No Reported Reaction Past Psychological History: ADD/ADHD, Depression Smoking Status: Never smoker Past Alcohol Use History: None Reported Past Drug Use History: None Reported - Past Family History Mother Family Medical History: No Reported History General Exam Limitations: no limitations General appearance: alert, in no apparent distress Head exam: Present: atraumatic, normocephalic, normal inspection Eye exam: Present: normal appearance, PERRL, EOMI. Absent: scleral icterus, conjunctival injection, periorbital swelling ENT exam: Present: normal exam, mucous membranes moist Neck exam: Present: normal inspection, full ROM. Absent: tenderness, meningismus, lymphadenopathy Respiratory exam: Present: normal lung sounds bilaterally. Absent: respiratory distress, wheezes, rales, rhonchi, stridor Cardiovascular Exam: Present: regular rate, normal rhythm, normal heart sounds. Absent: systolic murmur, diastolic murmur, rubs, gallop, clicks Course Vital Signs 12/04/20 17:43 Temperature 98.2 F Pulse Rate 89 Respiratory 18 Rate Blood Pressure 101/74 O2 Sat by Pulse 99 Oximetry Medical Decision Making - Medical Decision Making Patient is positive for covid. Patient be discharged in stable condition. - Lab Data Lab Results 12/04/20 Range/Units 18:00 Influenza Type A (PCR) Not Detected (Not Detectd) Influenza Type B (PCR) Not Detected (Not Detectd) RSV (PCR) Not Detected (Not Detectd) SARS-CoV-2 (PCR) Detected A (Not Detectd) Disposition Clinical Impression: COVID-19 Disposition: HOME SELF-CARE Instructions (If sedation given, give patient instructions): Coronavirus Disease 2019 (COVID-19) Additional Instructions: Please return to the Emergency Department if symptoms worsen or any other concerns. Is patient prescribed a controlled substance at d/c from ED?: No Referrals: Akhil Pearson MD [Primary Care Provider] - 1-2 days Time of Disposition: 05:59
== END 2020-12-04 19:00 | disposition home or self-care (01) ==
LOC: EC 17:36
DX: U07.1 COVID-19 (principal); F32.9 Major depressive disorder, single episode, unspecified
CPT/HCPCS: 87636; 99284

== ENCOUNTER 2021-05-06 21:44 | Emergency (ER) | payer OTHER ==
[2021-05-06 22:21] LABS: Basophils # (A) 0.1 k/uL (0-0.2); Basophils % (A) 1 %; Eosinophils # (A) 0.3 k/uL (0-0.7); Eosinophils % (A) 3 %; HCT 40.9 % (34.0-46.0); HGB 14.7 gm/dL (11.4-16.0); Hyperchromasia Slight; Lymphocytes # (A) 3.2 k/uL (1.0-4.8); Lymphocytes % (A) 34 %; MCH 32.4 pg (25.0-35.0); MCHC 35.8 g/dL (31.0-37.0); MCV 90.6 fL (80.0-100.0); Mean Platelet Volume 6.7; Monocytes # (A) 0.4 k/uL (0-1.0); Monocytes % (A) 4 %; Neutrophils # (A) 5.1 k/uL (1.3-7.7); Neutrophils % (A) 55 %; Platelet Count 485 k/uL (150-450); RBC 4.52 m/uL (3.80-5.40); RDW 12.3 % (11.5-15.5); WBC 9.3 k/uL (3.8-10.6)
[2021-05-06 22:30] LABS: ALT 23 U/L (4-34); AST 29 U/L (14-36); African American GFR (CKD) >90 (>60 ml/min/1.73 sqM); Albumin 4.5 g/dL (3.5-5.0); Alkaline Phosphatase 73 U/L (38-126); Anion Gap 11 mmol/L; Blood Urea Nitrogen 11 mg/dL (7-17); Calcium 9.8 mg/dL (8.4-10.2); Carbon Dioxide 22 mmol/L (22-30); Chloride 106 mmol/L (98-107); Glucose 103 mg/dL (74-99); Magnesium 1.8 mg/dL (1.6-2.3); Non-African American GFR(CKD) >90 (>60 ml/min/1.73 sqM); Sodium 139 mmol/L (137-145); Total Bilirubin 0.4 mg/dL (0.2-1.3); Total Protein 7.9 g/dL (6.3-8.2)
--- NOTE | 2021-05-06 22:34 | ED ---
Chest Pain HPI - General Chief Complaint: Chest Pain Stated Complaint: Chest Pain Time Seen by Provider: 05/06/21 21:54 Source: patient Mode of arrival: wheelchair Limitations: no limitations - History of Present Illness Initial Comments: 25-year-old female presents emergency Department with a chief complaint of chest pain. Patient reports the symptoms began around 1600 today and have been constant since. Patient noticed the pain is worsening with exertion typically whenever she is going up and down the stairs going to the kitchen. She also reports exertional dyspnea. However, she denies any cough or other URI like symptoms. She is not currently on oral contraceptives. Denies prior history of DVT or PE. Denies . Denies unilateral calf pain or swelling. Denies hypercoagulable hematologic conditions. Denies recent hospitalizations or surgeries. - Related Data Home Medications Medication Instructions Recorded Confirmed Pnv No.95/Ferrous Fum/Folic AC 1 each PO DAILY 05/21/19 07/18/19 [ Multivitamin Tablet] Previous Rx's Medication Instructions Recorded Ibuprofen [Motrin] 600 mg PO Q6HR PRN #30 tab 07/18/19 HYDROcodone/APAP 5-325MG [[place] 1 tab PO Q4HR PRN #30 tab 07/20/19 5-325] Ibuprofen [Motrin] 600 mg PO Q6HR PRN #30 tab 07/20/19 Sertraline HCl [Zoloft] 25 mg PO DAILY #10 tab 07/20/19 Allergies Allergy/AdvReac Type Severity Reaction Status Date / Time No Known Allergies Allergy Verified 05/06/21 21:48 Review of Systems ROS Statement: Those systems with pertinent positive or pertinent negative responses have been documented in the HPI. ROS Other: All systems not noted in ROS Statement are negative. EKG Findings - EKG Comments: EKG Findings:: Sinus arrhythmia. Ventricular rate 70, W[place] 150, QRS 76, QTC 492. Past Medical History Past Medical History: No Reported History Additional Past Medical History / Comment(s): Sl edema ankles. History of Any Multi-Drug Resistant Organisms: None Reported Past Surgical History: Section Past Anesthesia/Blood Transfusion Reactions: No Reported Reaction Past Psychological History: ADD/ADHD, Depression Smoking Status: Never smoker Past Alcohol Use History: None Reported Past Drug Use History: None Reported - Past Family History Mother Family Medical History: No Reported History General Exam Limitations: no limitations General appearance: alert, in no apparent distress, obese Head exam: Present: atraumatic, normocephalic, normal inspection Eye exam: Present: normal appearance, PERRL, EOMI Pupils: Present: normal accommodation ENT exam: Present: normal exam, normal oropharynx, mucous membranes moist Neck exam: Present: normal inspection, full ROM. Absent: tenderness Respiratory exam: Present: normal lung sounds bilaterally. Absent: respiratory distress Cardiovascular Exam: Present: regular rate, normal rhythm, normal heart sounds. Absent: systolic murmur Extremities exam: Present: normal inspection, full ROM. Absent: tenderness Back exam: Present: normal inspection, full ROM. Absent: tenderness Neurological exam: Present: alert, oriented X3 Psychiatric exam: Present: normal affect, normal mood Skin exam: Present: warm, dry, intact, normal color Course Vital Signs 05/06/21 21:46 Temperature 98.1 F Pulse Rate 89 Respiratory 20 Rate Blood Pressure 114/80 O2 Sat by Pulse 99 Oximetry Chest Pain MDM - MDM 25-year-old female presents emergency Department with a chief complaint of chest pain. On physical examination, lungs are clear to auscultation. Vital signs are within normal limits. CBC CMP unremarkable. Negative troponin and d-dimer. EKG nonischemic. Patient advised to follow-up with a administrative executive. Return parameters were discussed patient is an attending agreeable. Case discussed physician. Disposition Clinical Impression: Chest pain Disposition: HOME SELF-CARE Condition: Stable Instructions (If sedation given, give patient instructions): Chest Pain (ED) Additional Instructions: Please return to the Emergency Department if symptoms worsen or any other concerns. Is patient prescribed a controlled substance at d/c from ED?: No Referrals: Akhil Pearson MD [Primary Care Provider] - 1-2 days Time of Disposition: 23:12
--- NOTE | 2021-05-06 22:42 | XR ---
EXAMINATION TYPE: XR chest 2V DATE OF EXAM: 05/06/2021 COMPARISON: NONE HISTORY: Chest pain TECHNIQUE: 2 views FINDINGS: Heart and mediastinum are normal. Lungs are clear. Diaphragm is normal. Bony thorax is norm al. IMPRESSION: Normal chest. No change.
[2021-05-06 22:45] LABS: INR 0.9 (<1.2); Partial Thromboplastin Time 24.4 sec (22.0-30.0); Prothrombin Time 9.8 sec (9.0-12.0)
[2021-05-06 23:42] VITALS: BP 110/66; PULSE 80; RESP 17; TEMP 98.3
== END 2021-05-06 23:42 | disposition home or self-care (01) ==
LOC: EC 21:44
DX: R07.9 Chest pain, unspecified (principal); E66.9 Obesity, unspecified; F32.9 Major depressive disorder, single episode, unspecified; Z79.1 Long term (current) use of non-steroidal anti-inflammatories (NSAID); Z79.899 Other long term (current) drug therapy; Z68.30 Body mass index [BMI] 30.0-30.9, adult
CPT/HCPCS: 36415; 71046; 80053; 83735; 84484; 85025; 85379; 85610; 85730; 93005; 99285

== ENCOUNTER 2022-07-16 20:39 | Emergency (ER) | payer OTHER ==
[2022-07-16 20:44] VITALS: BP 110/78; PULSE 89; RESP 18; TEMP 98.1
[2022-07-16 21:13] LABS: Appearance,Urine Clear (Clear); Bilirubin,Urine Negative (Negative); Blood,Urine Negative (Negative); Color,Urine Yellow; Glucose,Urine (UA) Negative (Negative); Ketones,Urine Negative (Negative); Leukocyte Esterase,Urine Negative (Negative); Nitrite,Urine Negative (Negative); PH, Urine 5.5 (5.0-8.0); Protein,Urine Trace (Negative); Specific Gravity,Urine 1.033 (1.001-1.035)
[2022-07-16] MEDS ORDERED: FAMOTIDINE 20 MG TAB PO STA (23:21)
[2022-07-16] MEDS ORDERED: MAG HYDROX/AL HYDROX/SIMETH 30 ML, HYOSCYAMINE ELIXIR 10 ML PO STA ×2 (23:21)
--- NOTE | 2022-07-16 23:24 | ED ---
Nausea/Vomiting/Diarrhea HPI - General Chief complaint: Nausea/Vomiting/Diarrhea Stated complaint: vomiting Time Seen by Provider: 07/16/22 23:14 Source: patient, family, RN notes reviewed, old records reviewed Mode of arrival: ambulatory Limitations: no limitations - History of Present Illness Initial comments: This is a well-appearing 26 year female who presents ambulatory with significant other complaining of one episode of nausea and vomiting after smelling something terrible at 7:00 this evening. Patient states that she vomited brown in color. She states that she did see some pink blood. She was seen for a sore throat at the urgent care couple of days ago was tested for viral illness and negative. She states that she is concerned that she may be because of the nausea vomiting. Denies any medical history. No medications on a daily basis. Does not drink or smoke daily. MD complaint: nausea, vomiting -: days(s) (1) Description of Vomiting: watery, other (brown) Associated Abdominal Pain: No Severity scale (1-10): 0 Associated Symptoms: denies other symptoms - Related Data Home Medications Medication Instructions Recorded Confirmed No Known Home Medications 05/06/21 05/06/21 Allergies Allergy/AdvReac Type Severity Reaction Status Date / Time No Known Allergies Allergy Verified 07/16/22 20:44 Review of Systems ROS Statement: Those systems with pertinent positive or pertinent negative responses have been documented in the HPI. ROS Other: All systems not noted in ROS Statement are negative. Past Medical History Past Medical History: No Reported History Additional Past Medical History / Comment(s): Sl edema ankles. History of Any Multi-Drug Resistant Organisms: None Reported Past Surgical History: Section Past Anesthesia/Blood Transfusion Reactions: No Reported Reaction Past Psychological History: ADD/ADHD, Depression Smoking Status: Never smoker Past Alcohol Use History: None Reported Past Drug Use History: None Reported - Past Family History Mother Family Medical History: No Reported History General Exam Limitations: no limitations General appearance: alert, in no apparent distress Head exam: Present: atraumatic Eye exam: Present: normal appearance. Absent: scleral icterus, conjunctival injection, periorbital swelling, periorbital tenderness ENT exam: Present: normal exam, normal oropharynx, mucous membranes moist Expanded Mouth exam: Present: normal external inspection, tongue normal, tongue elevation. Absent: drooling, trismus, muffled voice Throat exam: negative: tonsillar erythema, tonsillomegaly, tonsillar exudate, R peritonsillar mass, L peritonsillar mass Neck exam: Present: normal inspection, full ROM. Absent: tenderness, meningismus, lymphadenopathy, thyromegaly Respiratory exam: Absent: respiratory distress, accessory muscle use Cardiovascular Exam: Present: regular rate GI/Abdominal exam: Present: soft. Absent: distended, tenderness, guarding, rebound, rigid Extremities exam: Present: full ROM, normal capillary refill. Absent: tenderness, pedal edema Neurological exam: Present: alert, oriented X3, normal gait Psychiatric exam: Present: normal affect, normal mood Skin exam: Present: warm, dry, intact. Absent: cyanosis, diaphoretic, petechiae, pallor Course Vital Signs 07/16/22 20:40 Temperature 98.1 F Pulse Rate 89 Respiratory 18 Rate Blood Pressure 110/78 O2 Sat by Pulse 100 Oximetry Medical Decision Making - Medical Decision Making Patient was given Maalox and Pepcid. With relief of her nausea. CBC and electrolytes are unremarkable. Urinalysis negative, no evidence of . Abdomen soft and nontender. Vital signs are stable. No vomiting in the emergency room. She is afebrile. Patient did show me a picture on her phone of her emesis which was a small amount of brown flakes in the toilet with a small amount of pink blood. This may be a viral gastritis. She is directed to follow up with her primary care doctor for continuation of care. She is agreeable to this plan of care. Case discussed with Dr. Benitez - Lab Data Result diagrams: 07/16/22 23:29 07/16/22 23:29 Lab Results 07/16/22 07/16/22 07/16/22 Range/Units 20:52 20:52 23:29 WBC 9.9 (3.8-10.6) k/uL RBC 4.30 (3.80-5.40) m/uL Hgb 13.2 (11.4-16.0) gm/dL Hct 38.2 (34.0-46.0) % MCV 88.8 (80.0-100.0) fL MCH 30.6 (25.0-35.0) pg MCHC 34.4 (31.0-37.0) g/dL RDW 12.2 (11.5-15.5) % Plt Count 428 (150-450) k/uL MPV 6.8 Neutrophils % 54 % Lymphocytes % 29 % Monocytes % 9 % Eosinophils % 5 % Basophils % 1 % Neutrophils # 5.3 (1.3-7.7) k/uL Lymphocytes # 2.9 (1.0-4.8) k/uL Monocytes # 0.9 (0-1.0) k/uL Eosinophils # 0.5 (0-0.7) k/uL Basophils # 0.1 (0-0.2) k/uL Sodium (137-145) mmol/L Potassium (3.5-5.1) mmol/L Chloride (98-107) mmol/L Carbon Dioxide (22-30) mmol/L Anion Gap mmol/L BUN (7-17) mg/dL Creatinine (0.52-1.04) mg/dL Est GFR (CKD-EPI)AfAm (>60 ml/min/1.73 sqM) Est GFR (CKD-EPI)NonAf (>60 ml/min/1.73 sqM) Glucose (74-99) mg/dL Calcium (8.4-10.2) mg/dL Urine Color Yellow Urine Appearance Clear (Clear) Urine pH 5.5 (5.0-8.0) Ur Specific [place] 1.033 (1.001-1.035) Urine Protein Trace H (Negative) Urine Glucose (UA) Negative (Negative) Urine Ketones Negative (Negative) Urine Blood Negative (Negative) Urine Nitrite Negative (Negative) Urine Bilirubin Negative (Negative) Urine Urobilinogen 2.0 (<2.0) mg/dL Ur Leukocyte Esterase Negative (Negative) Urine HCG, Qual Not Detected (Not Detectd) 07/16/22 Range/Units 23:29 WBC (3.8-10.6) k/uL RBC (3.80-5.40) m/uL Hgb (11.4-16.0) gm/dL Hct (34.0-46.0) % MCV (80.0-100.0) fL MCH (25.0-35.0) pg MCHC (31.0-37.0) g/dL RDW (11.5-15.5) % Plt Count (150-450) k/uL MPV Neutrophils % % Lymphocytes % % Monocytes % % Eosinophils % % Basophils % % Neutrophils # (1.3-7.7) k/uL Lymphocytes # (1.0-4.8) k/uL Monocytes # (0-1.0) k/uL Eosinophils # (0-0.7) k/uL Basophils # (0-0.2) k/uL Sodium 139 (137-145) mmol/L Potassium 4.0 (3.5-5.1) mmol/L Chloride 109 H (98-107) mmol/L Carbon Dioxide 23 (22-30) mmol/L Anion Gap 7 mmol/L BUN 12 (7-17) mg/dL Creatinine 0.67 (0.52-1.04) mg/dL Est GFR (CKD-EPI)AfAm >90 (>60 ml/min/1.73 sqM) Est GFR (CKD-EPI)NonAf >90 (>60 ml/min/1.73 sqM) Glucose 79 (74-99) mg/dL Calcium 8.8 (8.4-10.2) mg/dL Urine Color Urine Appearance (Clear) Urine pH (5.0-8.0) Ur Specific [place] (1.001-1.035) Urine Protein (Negative) Urine Glucose (UA) (Negative) Urine Ketones (Negative) Urine Blood (Negative) Urine Nitrite (Negative) Urine Bilirubin (Negative) Urine Urobilinogen (<2.0) mg/dL Ur Leukocyte Esterase (Negative) Urine HCG, Qual (Not Detectd) Disposition Clinical Impression: Nausea & vomiting Disposition: HOME SELF-CARE Condition: Good Instructions (If sedation given, give patient instructions): Acute Nausea and Vomiting (ED) Additional Instructions: Follow-up the primary care doctor next week. Return to the emergency room with any new or concerning symptoms Is patient prescribed a controlled substance at d/c from ED?: No Referrals: None,Stated [Primary Care Provider] - 1-2 days Time of Disposition: 00:25
[2022-07-16 23:46] LABS: Basophils # (A) 0.1 k/uL (0-0.2); Basophils % (A) 1 %; Eosinophils # (A) 0.5 k/uL (0-0.7); Eosinophils % (A) 5 %; HCT 38.2 % (34.0-46.0); HGB 13.2 gm/dL (11.4-16.0); Lymphocytes # (A) 2.9 k/uL (1.0-4.8); Lymphocytes % (A) 29 %; MCH 30.6 pg (25.0-35.0); MCHC 34.4 g/dL (31.0-37.0); MCV 88.8 fL (80.0-100.0); Mean Platelet Volume 6.8; Monocytes # (A) 0.9 k/uL (0-1.0); Monocytes % (A) 9 %; Neutrophils # (A) 5.3 k/uL (1.3-7.7); Neutrophils % (A) 54 %; Platelet Count 428 k/uL (150-450); RDW 12.2 % (11.5-15.5); WBC 9.9 k/uL (3.8-10.6)
[2022-07-17 00:11] LABS: African American GFR (CKD) >90 (>60 ml/min/1.73 sqM); Anion Gap 7 mmol/L; Blood Urea Nitrogen 12 mg/dL (7-17); Calcium 8.8 mg/dL (8.4-10.2); Carbon Dioxide 23 mmol/L (22-30); Chloride 109 mmol/L (98-107); Glucose 79 mg/dL (74-99); Non-African American GFR(CKD) >90 (>60 ml/min/1.73 sqM); Sodium 139 mmol/L (137-145)
== END 2022-07-17 01:14 | disposition home or self-care (01) ==
LOC: EC 20:39
DX: R11.2 Nausea with vomiting, unspecified (principal); F90.9 Attention-deficit hyperactivity disorder, unspecified type; F32.A Depression, unspecified
CPT/HCPCS: 36415; 80048; 81003; 81025; 85025; 99284

== ENCOUNTER 2022-08-28 00:38 | Emergency (ER) | payer OTHER ==
[2022-08-28] MEDS ORDERED: KETOROLAC 15 MG/ML 1 ML VIAL IM STA (01:00)
[2022-08-28 01:01] VITALS: RESP 16; TEMP 98.2
[2022-08-28] MEDS ORDERED: ONDANSETRON ODT 4 MG TAB PO STA (01:16)
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
[2022-08-28 01:40] LABS: Appearance,Urine Clear (Clear); Bilirubin,Urine Negative (Negative); Blood,Urine Negative (Negative); Color,Urine Yellow; Glucose,Urine (UA) Negative (Negative); Ketones,Urine Negative (Negative); Leukocyte Esterase,Urine Trace (Negative); Mucus,Urine Occasional /hpf; Nitrite,Urine Negative (Negative); PH, Urine 5.5 (5.0-8.0); Protein,Urine Trace (Negative); RBC,Urine 4 /hpf (0-5); Specific Gravity,Urine 1.025 (1.001-1.035); Squamous Epithelial Cell,Urine 7 /hpf (0-4); WBC,Urine 3 /hpf (0-5)
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
[2022-08-28 02:39] VITALS: BP 109/70; PULSE 76
== END 2022-08-28 02:39 | disposition home or self-care (01) ==
LOC: EC 00:38
DX: M54.50 Low back pain, unspecified (principal); F32.A Depression, unspecified; V49.9XXA Car occupant (driver) (passenger) injured in unspecified traffic accident, initial encounter; Y92.411 Interstate highway as the place of occurrence of the external cause
CPT/HCPCS: 81001; 81025; 72100; 72125; 70450; 99284; 96372; J1885

== ENCOUNTER 2022-11-11 21:02 | Emergency (ER) | payer OTHER ==
[2022-11-11 21:23] VITALS: BP 116/78; PULSE 78; RESP 18; TEMP 98.4
[2022-11-11] MEDS ORDERED: SODIUM CHLORIDE 0.9% 1,000 ML IV STA (23:31)
[2022-11-11] MEDS ORDERED: ACETAMINOPHEN TAB 500 MG TAB PO STA (23:40)
[2022-11-11] MEDS ORDERED: METOCLOPRAMIDE 5 MG/ML 2 ML VIAL IVP STA (23:40)
--- NOTE | 2022-11-12 00:28 | US ---
EXAMINATION TYPE: Transabdominal DATE OF EXAM: 11/12/2022 12:06 AM COMPARISON: NONE CLINICAL HISTORY: pain 11 weeks. Lower pelvic and RLQ pain. EXAM PERFORMED: Transabdominal (TA) EXAM MEASUREMENTS: GESTATIONAL AGE / DATING Physician Established: Not yet established Dates by LMP: (12 weeks/1 days) EDC: 05/25/23 Dates by First Scan: No previous this is first scan Dates by Current Scan for: (12 weeks/5 days) EDC: 05/21/23 MATERNAL ANATOMY Uterus: 12.3 x 9.5 x 5.5cm Right Ovary: 4.4 x 3.0 x 2.7cm Left Ovary: Not seen Post CDS / Adnexa: wnl Presence of free fluid: No Presence of corpus luteal cyst: Possible in right ovary measuring 2.4 x 2.6 x 2.0cm Presence of subchorionic bleed: No GESTATION / SURVEY CRL: 6.27cm (12 weeks/5 days) Heart Rate: 176 bpm Rhythm: Normal IUP: Viable IUP Nuchal Translucency 10-14wks (normal less than 3mm): 1.4mm Date of LMP: 08/18/22 Beta HcG (if available): N/A IMPRESSION: The ultrasound gestational age is 12 weeks and 5 days. No complicating process seen.
[2022-11-12 00:32] LABS: Basophils % (A) 0 %; Eosinophils # (A) 0.2 k/uL (0-0.7); Eosinophils % (A) 2 %; HCT 34.9 % (34.0-46.0); HGB 12.4 gm/dL (11.4-16.0); Lymphocytes # (A) 2.7 k/uL (1.0-4.8); Lymphocytes % (A) 22 %; MCH 31.3 pg (25.0-35.0); MCHC 35.5 g/dL (31.0-37.0); MCV 88.2 fL (80.0-100.0); Mean Platelet Volume 6.4; Monocytes # (A) 0.6 k/uL (0-1.0); Monocytes % (A) 5 %; Neutrophils # (A) 8.3 k/uL (1.3-7.7); Neutrophils % (A) 69 %; Platelet Count 427 k/uL (150-450); RBC 3.96 m/uL (3.80-5.40); RDW 13.3 % (11.5-15.5)
[2022-11-12 00:33] LABS: ALT 19 U/L (4-34); AST 18 U/L (14-36); African American GFR (CKD) >90 (>60 ml/min/1.73 sqM); Albumin 3.8 g/dL (3.5-5.0); Alkaline Phosphatase 56 U/L (38-126); Anion Gap 8 mmol/L; Blood Urea Nitrogen 8 mg/dL (7-17); Calcium 9.2 mg/dL (8.4-10.2); Carbon Dioxide 23 mmol/L (22-30); Chloride 105 mmol/L (98-107); Glucose 73 mg/dL (74-99); Lipase 590 U/L (23-300); Non-African American GFR(CKD) >90 (>60 ml/min/1.73 sqM); Potassium 4.1 mmol/L (3.5-5.1); Sodium 136 mmol/L (137-145); Total Bilirubin 0.4 mg/dL (0.2-1.3)
[2022-11-12 00:47] LABS: Appearance,Urine Cloudy (Clear); Bacteria,Urine Many /hpf; Bilirubin,Urine Negative (Negative); Blood,Urine Negative (Negative); Color,Urine Yellow; Glucose,Urine (UA) Negative (Negative); Ketones,Urine Negative (Negative); Leukocyte Esterase,Urine Negative (Negative); Mucus,Urine Few /hpf; Nitrite,Urine Negative (Negative); Protein,Urine Trace (Negative); RBC,Urine 2 /hpf (0-5); Specific Gravity,Urine 1.025 (1.001-1.035); Squamous Epithelial Cell,Urine 51 /hpf (0-4); WBC,Urine 2 /hpf (0-5)
[2022-11-12] MEDS ORDERED: CEPHALEXIN 250 MG CAP PO STA (00:56)
--- NOTE | 2022-11-12 01:26 | US ---
EXAMINATION TYPE: US abdomen limited DATE OF EXAM: 11/12/2022 COMPARISON: NONE CLINICAL HISTORY: pain vomiting elevated lipase. RLQ pain TECHNIQUE: Multiple sonographic images of the right upper quadrant are obtained. FINDINGS: EXAM MEASUREMENTS: Liver Length: 16.1 cm Gallbladder Wall: 0.28 cm CBD: 0.33 cm Right Kidney: 10.7 x 4.9 x 4.2 cm LICENSED LAND SURVEYOR NOTES: Pancreas: wnl Liver: wnl Gallbladder: wnl Evidence for sonographic Iyer's sign: No CBD: wnl Right Kidney: Dilated renal pelvis IMPRESSION: No gallstones or dilated ducts. No evidence of pancreatic mass. There is some fullness of the right renal pelvis.
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
== END 2022-11-12 01:45 | disposition home or self-care (01) ==
LOC: EC 21:02
DX: O26.891 Other specified pregnancy related conditions, first trimester (principal); R10.13 Epigastric pain; O23.91 Unspecified genitourinary tract infection in pregnancy, first trimester; R82.71 Bacteriuria; O99.341 Other mental disorders complicating pregnancy, first trimester; F32.A Depression, unspecified; Z3A.12 12 weeks gestation of pregnancy
CPT/HCPCS: 36415; 80053; 83605; 83690; 85025; 81001; 84702; 76705; 76801; 99284; 96374; 96361; J2765

== ENCOUNTER 2023-05-17 19:55 | Emergency (ER) | payer OTHER ==
[2023-05-17 20:17] VITALS: TEMP 97.8
[2023-05-17] MEDS ORDERED: SODIUM CHLORIDE 0.9% 1,000 ML IV STA (20:20)
[2023-05-17 20:54] LABS: Anisocytosis Slight; Basophils % (A) 0 %; Eosinophils # (A) 0.3 k/uL (0-0.7); Eosinophils % (A) 3 %; HCT 30.2 % (34.0-46.0); HGB 9.7 gm/dL (11.4-16.0); Hypochromasia Slight; Lymphocytes # (A) 1.8 k/uL (1.0-4.8); Lymphocytes % (A) 19 %; MCH 28.3 pg (25.0-35.0); MCHC 32.1 g/dL (31.0-37.0); Mean Platelet Volume 7.4; Monocytes # (A) 0.4 k/uL (0-1.0); Monocytes % (A) 5 %; Neutrophils # (A) 6.5 k/uL (1.3-7.7); Neutrophils % (A) 71 %; Platelet Count 524 k/uL (150-450); RBC 3.43 m/uL (3.80-5.40); RDW 17.8 % (11.5-15.5); WBC 9.2 k/uL (3.8-10.6)
[2023-05-17 21:10] LABS: ALT 49 U/L (4-34); AST 63 U/L (14-36); African American GFR (CKD) >90 (>60 ml/min/1.73 sqM); Alkaline Phosphatase 136 U/L (38-126); Amylase 49 U/L (30-110); Anion Gap 7 mmol/L; Blood Urea Nitrogen 8 mg/dL (7-17); Calcium 8.5 mg/dL (8.4-10.2); Carbon Dioxide 20 mmol/L (22-30); Chloride 110 mmol/L (98-107); Glucose 74 mg/dL (74-99); Lipase 44 U/L (23-300); Non-African American GFR(CKD) >90 (>60 ml/min/1.73 sqM); Sodium 137 mmol/L (137-145); Total Bilirubin 0.9 mg/dL (0.2-1.3); Total Protein 6.1 g/dL (6.3-8.2)
[2023-05-17 21:33] LABS: INR 0.9 (<1.2); Prothrombin Time 9.3 sec (9.0-12.0)
[2023-05-17 21:39] LABS: Partial Thromboplastin Time 19.1 sec (22.0-30.0)
--- NOTE | 2023-05-17 21:56 | CT ---
EXAMINATION TYPE: CT abdomen pelvis w con DATE OF EXAM: 05/17/2023 HISTORY: Hx of 4 days ago, uterine rupture during surgery, Pt was unable to urinate today a nd was in severe pain. Pt was not able to urinate until catheter was put in. CT DLP: 1312.1mGycm Automated Exposure Control for Dose Reduction was Utilized. CONTRAST: CT scan of the abdomen and pelvis is performed with IV Contrast, patient injected with 100 ml mL of I sovue 300. COMPARISON: None. FINDINGS: LUNG BASES: No significant abnormality is appreciated. LIVER/GB: No significant abnormality is appreciated. PANCREAS: No significant abnormality is seen. SPLEEN: No significant abnormality is seen. ADRENALS: No significant abnormality is seen. KIDNEYS: Mild to moderate bilateral hydronephrosis but no delayed excretion is seen. There is ill-def ined hyperdense fluid in the lower abdomen and anterior pelvis with inability to identify distinct bl adder wall. Adam catheter balloon is noted posteriorly and inferiorly. More hyperdense fluid near th e Adam catheter tube is noted. BOWEL: No significant abnormality is seen. UTERUS/ADNEXA: Heterogeneous enlarged uterus correlates with history of recent full-term . H orizontal scar tissue overlying the lower pelvis consistent with recent is noted LYMPH NODES: No greater than 1cm abdominal or pelvic lymph nodes are appreciated. OSSEOUS STRUCTURES: No significant abnormality is seen. OTHER: No significant additional abnormality is seen. IMPRESSION: Ill-defined fluid in the lower abdomen and pelvis. Adam catheter in pelvis. Inability to identify bladder are distinct from free fluid. Bladder injury cannot be excluded and further evaluat ion is warranted. Some hyperdense material raises concern for blood product in the pelvis.
[2023-05-17 22:07] LABS: Appearance,Urine Clear (Clear); Bacteria,Urine Rare /hpf; Bilirubin,Urine Negative (Negative); Blood,Urine Large (Negative); Color,Urine Light Yellow; Glucose,Urine (UA) Negative (Negative); Ketones,Urine Negative (Negative); Leukocyte Esterase,Urine Moderate (Negative); Mucus,Urine Rare /hpf; Nitrite,Urine Negative (Negative); Protein,Urine 1+ (Negative); RBC,Urine 24 /hpf (0-5); Specific Gravity,Urine 1.004 (1.001-1.035); Squamous Epithelial Cell,Urine 5 /hpf (0-4); Urobilinogen,Urine <2.0 mg/dL (<2.0); WBC,Urine 18 /hpf (0-5)
--- NOTE | 2023-05-17 22:44 | ED ---
General Adult HPI - General Chief complaint: Abdominal Pain Stated complaint: Post-Op Complications, Abdominal Pain Time Seen by Provider: 05/17/23 20:20 Source: patient, EMS, RN notes reviewed, old records reviewed Mode of arrival: EMS - History of Present Illness Initial comments: Patient is a 27-year-old female who is day following section for uterine rupture. Patient's . Successful delivery baby. She has been having lower abdominal pain for the last few hours. Attempted to urinate without success. States this is when symptoms began. Denies any vaginal discharge or bleeding be on but has been typical for her. Denies any diarrhea, constipation, nausea, vomiting. States they just removed her Adam catheter this morning upon discharge but was having a difficult time urinating at home. Has no acute complaints this time. Is concerned regarding uterine rupture again. Has been breast-feeding. His no other acute complaints at this time. Presents for further evaluation. - Related Data Home Medications Medication Instructions Recorded Confirmed Ferrous Sulfate [Feosol] 325 mg PO DAILY 05/13/23 05/14/23 Famotidine [Pepcid] 1 tab PO DAILY 05/14/23 05/14/23 Vit No.179/Iron/Folic 1 tab PO DAILY 05/14/23 05/14/23 [ Tablet] Previous Rx's Medication Instructions Recorded Acetaminophen Tab [Tylenol] 650 mg PO Q6H PRN #30 tab 05/16/23 Ibuprofen [Motrin] 600 mg PO Q6HR PRN #30 tab 05/16/23 polyethylene glycoL 3350 [Miralax] 17 gm PO DAILY PRN #527 gm 05/16/23 Allergies Allergy/AdvReac Type Severity Reaction Status Date / Time No Known Allergies Allergy Verified 05/17/23 20:07 Review of Systems ROS Statement: Those systems with pertinent positive or pertinent negative responses have been documented in the HPI. Review of Systems: CONST: Denies fever EYES: Denies blurry vision ENT: Denies nasal congestion C/V: Denies Chest pain RESP: Denies shortness of breath GI: Endorses abdominal pain : Denies dysuria SKIN: Denies rash. MSK: Denies joint pain. NEURO: Denies headache ROS Other: All systems not noted in ROS Statement are negative. Past Medical History Past Medical History: No Reported History Additional Past Medical History / Comment(s): Sl edema ankles. History of Any Multi-Drug Resistant Organisms: None Reported Past Surgical History: Section Past Anesthesia/Blood Transfusion Reactions: No Reported Reaction Past Psychological History: ADD/ADHD, Depression Smoking Status: Never smoker Past Alcohol Use History: None Reported Past Drug Use History: None Reported - Past Family History Mother Family Medical History: No Reported History General Exam - General Exam Comments Initial Comments: General: Appears in mild distress. Distress. HEAD: Normal with no signs of head trauma. EYES: PERRLA, EOMI, conjunctiva normal, no discharge. ENT: Hearing grossly intact, normal oropharynx. RESPIRATORY: Clear breath sounds bilaterally. No wheezes, rales, or rhonchi. C/V: Regular rate and rhythm. S1 and S2 auscultated, no edema, peripheral pulses 2+ and intact throughout ABD: Abdomen soft, nondistended. Only SUPRAPUBIC distention. Tender to palpation in the suprapubic as well as bilateral lower quadrants. No guarding. No rebound tenderness. No peritoneal signs EXT: Normal range of motion, no obvious deformity SKIN: No rashes or lesions observed on exposed skin. NEURO: Alert and oriented 4. Course Vital Signs 05/17/23 05/17/23 05/17/23 20:01 21:14 23:13 Temperature 97.8 F Pulse Rate 68 69 70 Respiratory 20 16 18 Rate Blood Pressure 104/71 109/87 111/65 O2 Sat by Pulse 100 97 99 Oximetry Medical Decision Making - Medical Decision Making Was pt. sent in by a medical professional or institution (ALBINA Holloway, CONCRETE FINISHING MACHINE OPERATOR, urgent care, hospital, or snf...) When possible be specific @ -No Did you speak to anyone other than the patient for history (EMS, parent, family, police, friend...)? What history was obtained from this source @ -No Did you review nursing and triage notes (agree or disagree)? Why? @ -I reviewed and agree with nursing and triage notes Were old charts reviewed (outside hosp., previous admission, EMS record, old EKG, old radiological studies, urgent care reports/EKG's, snf records)? Report findings @ -Old charts reviewed. Differential Diagnosis (chest pain, altered mental status, abdominal pain women, abdominal pain men, vaginal bleeding, weakness, fever, dyspnea, syncope, headache, dizziness, GI bleed, back pain, seizure, CVA, palpatations, mental health, musculoskeletal)? @ -Postop complication, uterine rupture, urinary retention, retained products of conception. This list is not all inclusive. EKG interpreted by me (3pts min.). @ -As above X-rays interpreted by me (1pt min.). @ -None done CT interpreted by me (1pt min.). @ -CT and pelvis reveals some pelvic free fluid consistent with recent section. Bladder is fully collapsed. Radiology is concerned for possible bladder rupture overflowing catheter was placed and drained 750 mL of urine which is the cause for the bladder being fully collapsed. U/S interpreted by me (1pt. min.). @ -None done What testing was considered but not performed or refused? (CT, X-rays, U/S, labs)? Why? @ -None What meds were considered but not given or refused? Why? @ -Considered analgesic medications which were declined by the patient. Did you discuss the management of the patient with other professionals (professionals i.e. , PA, CONCRETE FINISHING MACHINE OPERATOR, lab, RT, psych nurse, director of social work, dive master, teacher, medical corps officer, rehabilitation case coordinator)? Give summary @ -Discussed with on-call GUEST SERVICE REPRESENTATIVE Dr. Varner covering for Dr. Centeno who was in agreement with the plan. Agreed with the assessment that this is normal pelvic free fluid and findings consistent with recent section. Was smoking cessation discussed for >3mins.? @ -No Was critical care preformed (if so, how long)? @ -No Were there social determinants of health that impacted care today? How? (Homelessness, low income, unemployed, alcoholism, drug addiction, transportation, low edu. Level, literacy, decrease access to med. care, halfway, rehab)? @ -No Was there de-escalation of care discussed even if they declined (Discuss DNR or withdrawal of care, Hospice)? DNR status @ -No What co-morbidities impacted this encounter? (DM, HTN, Smoking, COPD, CAD, Cancer, CVA, ARF, Chemo, Hep., AIDS, mental health diagnosis, sleep apnea, morbid obesity)? @ -None Was patient admitted / discharged? Hospital course, mention meds given and ro dione, prescriptions, significant lab abnormalities, going to OR and other pertinent info. @ -Based on the patient's presentation and physical exam, I'm concerned for acute intra-abdominal process for the patient. We will obtain CT on pelvis as well as abdominal labs. Bladder scan also be obtained. Patient was in agreement with this plan. We will provide her with IV fluid bolus as well as fentanyl if needed for pain. Vital signs within acceptable limits. Bladder scan showed approximate 750 mL of urine which were drained out with a Adam catheter after was placed. Patient's pain is stress improved. Patient's labs showed the continued anemia and the postop setting which is not worse than baseline. Remainder of her labs are within acceptable limits. Urinalysis is a contaminated catch. CT imaging showed no obvious acute intra-abdominal process, but does show find ings consistent with recent section. I did discuss the CT results with on-call GUEST SERVICE REPRESENTATIVE Dr. Varner who was in agreement that it is consistent with postop recommended follow-up the patient with urology as well as GUEST SERVICE REPRESENTATIVE. I did the patient. She was in agreement this plan. She'll be discharged home with Adam catheter and leg bag. Strict return precautions discussed. I instructed the patient to follow up with their PCP in the next 1-3 days. I provided contact information for follow up with urology. I explained that the patient should return to the emergency department if they experience any worsening symptoms. Strict return precautions were discussed with the patient. The patient expressed understanding of these instructions. I answered all questions that the patient had. The patient was discharged home in good condition with their prescriptions and follow up information. Undiagnosed new problem with uncertain prognosis? @ -No Drug Therapy requiring intensive monitoring for toxicity (Heparin, Nitro, Insulin, Cardizem)? @ -No Were any procedures done? @ -No Diagnosis/symptom? @ -Urinary retention Acute, or Chronic, or Acute on Chronic? @ -Acute Uncomplicated (without systemic symptoms) or Complicated (systemic symptoms)? @ -Complicated Side effects of treatment? @ -No Exacerbation, Progression, or Severe Exacerbation? @ -No Poses a threat to life or bodily function? How? (Chest pain, [place], [place], pneumonia, PE, COPD, DKA, ARF, appy, cholecystitis, CVA, Diverticulitis, Homicidal, Suicidal, threat to staff... and all critical care pts) @ -No - Lab Data Result diagrams: 05/17/23 20:32 05/17/23 20:32 Lab Results 05/17/23 05/17/23 05/17/23 Range/Units 20:32 20:32 20:32 WBC 9.2 (3.8-10.6) k/uL RBC 3.43 L (3.80-5.40) m/uL Hgb 9.7 L (11.4-16.0) gm/dL Hct 30.2 L (34.0-46.0) % MCV 88.0 (80.0-100.0) fL MCH 28.3 (25.0-35.0) pg MCHC 32.1 (31.0-37.0) g/dL RDW 17.8 H (11.5-15.5) % Plt Count 524 H (150-450) k/uL MPV 7.4 Neutrophils % 71 % Lymphocytes % 19 % Monocytes % 5 % Eosinophils % 3 % Basophils % 0 % Neutrophils # 6.5 (1.3-7.7) k/uL Lymphocytes # 1.8 (1.0-4.8) k/uL Monocytes # 0.4 (0-1.0) k/uL Eosinophils # 0.3 (0-0.7) k/uL Basophils # 0.0 (0-0.2) k/uL Hypochromasia Slight Anisocytosis Slight PT 9.3 (9.0-12.0) sec INR 0.9 (<1.2) APTT 19.1 L (22.0-30.0) sec Sodium 137 (137-145) mmol/L Potassium 4.0 (3.5-5.1) mmol/L Chloride 110 H (98-107) mmol/L Carbon Dioxide 20 L (22-30) mmol/L Anion Gap 7 mmol/L BUN 8 (7-17) mg/dL Creatinine 0.80 (0.52-1.04) mg/dL Est GFR (CKD-EPI)AfAm >90 (>60 ml/min/1.73 sqM) Est GFR (CKD-EPI)NonAf >90 (>60 ml/min/1.73 sqM) Glucose 74 (74-99) mg/dL Plasma Lactic Acid Sukhdev (0.7-2.0) mmol/L Calcium 8.5 (8.4-10.2) mg/dL Total Bilirubin 0.9 (0.2-1.3) mg/dL AST 63 H (14-36) U/L ALT 49 H (4-34) U/L Alkaline Phosphatase 136 H (38-126) U/L Total Protein 6.1 L (6.3-8.2) g/dL Albumin 3.0 L (3.5-5.0) g/dL Amylase 49 (30-110) U/L Lipase 44 (23-300) U/L Urine Color Urine Appearance (Clear) Urine pH (5.0-8.0) Ur Specific [place] (1.001-1.035) Urine Protein (Negative) Urine Glucose (UA) (Negative) Urine Ketones (Negative) Urine Blood (Negative) Urine Nitrite (Negative) Urine Bilirubin (Negative) Urine Urobilinogen (<2.0) mg/dL Ur Leukocyte Esterase (Negative) Urine RBC (0-5) /hpf Urine WBC (0-5) /hpf Ur Squamous Epith Cells (0-4) /hpf Urine Bacteria (None) /hpf Urine Mucus (None) /hpf Blood Type Blood Type Recheck Bld Type Recheck Status Antibody Screen Spec Expiration Date 05/17/23 05/17/23 05/17/23 Range/Units 20:32 20:37 20:50 WBC (3.8-10.6) k/uL RBC (3.80-5.40) m/uL Hgb (11.4-16.0) gm/dL Hct (34.0-46.0) % MCV (80.0-100.0) fL MCH (25.0-35.0) pg MCHC (31.0-37.0) g/dL RDW (11.5-15.5) % Plt Count (150-450) k/uL MPV Neutrophils % % Lymphocytes % % Monocytes % % Eosinophils % % Basophils % % Neutrophils # (1.3-7.7) k/uL Lymphocytes # (1.0-4.8) k/uL Monocytes # (0-1.0) k/uL Eosinophils # (0-0.7) k/uL Basophils # (0-0.2) k/uL Hypochromasia Anisocytosis PT (9.0-12.0) sec INR (<1.2) APTT (22.0-30.0) sec Sodium (137-145) mmol/L Potassium (3.5-5.1) mmol/L Chloride (98-107) mmol/L Carbon Dioxide (22-30) mmol/L Anion Gap mmol/L BUN (7-17) mg/dL Creatinine (0.52-1.04) mg/dL Est GFR (CKD-EPI)AfAm (>60 ml/min/1.73 sqM) Est GFR (CKD-EPI)NonAf (>60 ml/min/1.73 sqM) Glucose (74-99) mg/dL Plasma Lactic Acid Sukhdev 1.0 (0.7-2.0) mmol/L Calcium (8.4-10.2) mg/dL Total Bilirubin (0.2-1.3) mg/dL AST (14-36) U/L ALT (4-34) U/L Alkaline Phosphatase (38-126) U/L Total Protein (6.3-8.2) g/dL Albumin (3.5-5.0) g/dL Amylase (30-110) U/L Lipase (23-300) U/L Urine Color Light Yellow Urine Appearance Clear (Clear) Urine pH 7.0 (5.0-8.0) Ur Specific [place] 1.004 (1.001-1.035) Urine Protein 1+ H (Negative) Urine Glucose (UA) Negative (Negative) Urine Ketones Negative (Negative) Urine Blood Large H (Negative) Urine Nitrite Negative (Negative) Urine Bilirubin Negative (Negative) Urine Urobilinogen <2.0 (<2.0) mg/dL Ur Leukocyte Esterase Moderate H (Negative) Urine RBC 24 H (0-5) /hpf Urine WBC 18 H (0-5) /hpf Ur Squamous Epith Cells 5 H (0-4) /hpf Urine Bacteria Rare H (None) /hpf Urine Mucus Rare H (None) /hpf Blood Type A Positive Blood Type Recheck A Pos Bld Type Recheck Status No Antibody Screen NEGATIVE Spec Expiration Date 05/20/20232331 Disposition Clinical Impression: Urinary retention Disposition: HOME SELF-CARE Condition: Good Instructions (If sedation given, give patient instructions): Adam Catheter Placement and Care (ED) Additional Instructions: Follow up with OBGYn in the morning or Urology. Is patient prescribed a controlled substance at d/c from ED?: No Referrals: None,Stated [Primary Care Provider] - 1-2 days Sherry Centeno MD [STAFF PHYSICIAN] - 1-2 days Bobby Whittaker MD [STAFF PHYSICIAN] - 1-2 days Time of Disposition: 22:35
[2023-05-17 23:17] VITALS: BP 111/65; PULSE 70; RESP 18
== END 2023-05-17 23:15 | disposition home or self-care (01) ==
LOC: EC 19:55
DX: O99.893 Other specified diseases and conditions complicating puerperium (principal); R33.9 Retention of urine, unspecified; R10.31 Right lower quadrant pain; R10.32 Left lower quadrant pain; R14.0 Abdominal distension (gaseous); O90.81 Anemia of the puerperium
CPT/HCPCS: 51798; 36415; 86900; 86901; 80053; 82150; 83605; 83690; 85025; 85610; 85730; 86850; 81001; 74177; 51702; 99285; 96360; Q9967

== ENCOUNTER 2023-05-19 23:24 | Emergency (ER) | payer OTHER ==
[2023-05-19 23:51] VITALS: BP 114/80; PULSE 66; RESP 16; TEMP 98
--- NOTE | 2023-05-20 00:02 | ED ---
Recheck HPI - General Chief Complaint: Urogenital Stated Complaint: Catheter Malfunction Time Seen by Provider: 05/19/23 23:55 Source: patient, RN notes reviewed, old records reviewed Mode of arrival: ambulatory Limitations: no limitations - History of Present Illness Initial Comments: This is a 27-year-old female to the emergency department for evaluation. Patient presents today for evaluation regards to abdominal pain severe. Patient has severe abdominal pain here in the ER with recent significant surgical history section complication postop complication of urinary retention with Kendall catheters at this point. Patient does state that her current kendall catheter is not draining no blood. Severe pain MD Complaint: other (Recheck Kendall catheter) -: hour(s) Returns Today for: persistent/worsening pain related to initial visit Symptoms Since Prior Visit: worsening pain Associated Symptoms: none Treatments Prior to Arrival: other (0) - Related Data Home Medications Medication Instructions Recorded Confirmed Ferrous Sulfate [Feosol] 325 mg PO DAILY 05/13/23 05/14/23 Famotidine [Pepcid] 1 tab PO DAILY 05/14/23 05/14/23 Vit No.179/Iron/Folic 1 tab PO DAILY 05/14/23 05/14/23 [ Tablet] Previous Rx's Medication Instructions Recorded Acetaminophen Tab [Tylenol] 650 mg PO Q6H PRN #30 tab 05/16/23 Ibuprofen [Motrin] 600 mg PO Q6HR PRN #30 tab 05/16/23 polyethylene glycoL 3350 [Miralax] 17 gm PO DAILY PRN #527 gm 05/16/23 Amoxic-Pot Clav 875-125Mg 1 tab PO Q12HR #20 tablet 05/20/23 [Augmentin 875-125] Allergies Allergy/AdvReac Type Severity Reaction Status Date / Time No Known Allergies Allergy Verified 05/19/23 23:42 Review of Systems ROS Statement: Those systems with pertinent positive or pertinent negative responses have been documented in the HPI. ROS Other: All systems not noted in ROS Statement are negative. Past Medical History Past Medical History: No Reported History Additional Past Medical History / Comment(s): Sl edema ankles. History of Any Multi-Drug Resistant Organisms: None Reported Past Surgical History: Section Past Anesthesia/Blood Transfusion Reactions: No Reported Reaction Past Psychological History: ADD/ADHD, Depression Smoking Status: Never smoker Past Alcohol Use History: None Reported Past Drug Use History: None Reported - Past Family History Mother Family Medical History: No Reported History General Exam Limitations: no limitations General appearance: alert, in no apparent distress Head exam: Present: atraumatic, normocephalic, normal inspection Eye exam: Present: normal appearance, PERRL, EOMI. Absent: scleral icterus, conjunctival injection, periorbital swelling ENT exam: Present: normal exam, mucous membranes moist Neck exam: Present: normal inspection. Absent: tenderness, meningismus, lymphadenopathy Respiratory exam: Present: normal lung sounds bilaterally. Absent: respiratory distress, wheezes, rales, rhonchi, stridor Cardiovascular Exam: Present: regular rate, normal rhythm, normal heart sounds. Absent: systolic murmur, diastolic murmur, rubs, gallop, clicks GI/Abdominal exam: Present: soft, normal bowel sounds. Absent: distended, tenderness, guarding, rebound, rigid Extremities exam: Present: normal inspection, full ROM, normal capillary refill. Absent: tenderness, pedal edema, joint swelling, calf tenderness Back exam: Present: normal inspection Neurological exam: Present: alert, oriented X3, CN II-XII intact Psychiatric exam: Present: normal affect, normal mood Skin exam: Present: warm, dry, intact, normal color. Absent: rash Course Vital Signs 05/19/23 23:39 Temperature 98.0 F Pulse Rate 66 Respiratory 16 Rate Blood Pressure 114/80 O2 Sat by Pulse 100 Oximetry - Reevaluation(s) Reevaluation #1: 05/20/23 01:12 Record is reviewed Reevaluation #2: 05/20/23 01:12 Patient symptoms are resolved after replacement of Kendall catheter with greater than 500 mL out Reevaluation #3: 05/20/23 01:12 Patient informed results questions answered Reevaluation #4: 05/20/23 01:12 Was pt. sent in by a medical professional or institution (, PA, INDUSTRIAL ORGANIZATION MANAGER, urgent care, hospital, or fpc...) When possible be specific @ -no Did you speak to anyone other than the patient for history (EMS, parent, family, police, friend...)? What history was obtained from this source @ -no Did you review nursing and triage notes (agree or disagree)? Why? @ -agree Are old charts reviewed (outside hosp., previous admission, EMS record, old EKG, old radiological studies, urgent care reports/EKG's, fpc records)? Report findings @ -yes Differential Diagnosis (chest pain, altered mental status, abdominal pain women, abdominal pain men, vaginal bleeding, weakness, fever, dyspnea, syncope, headache, dizziness, GI bleed, back pain, seizure, CVA, palpatations, mental health, musculoskeletal)? @ -prior EKG interpreted by me (3pts min.). @ -no X-rays interpreted by me (1pt min.). @ -no CT interpreted by me (1pt min.). @ -no U/S interpreted by me (1pt. min.). @ -no What testing was considered but not performed or refused? (CT, X-rays, U/S, labs)? Why? @ -none What meds were considered but not given or refused? Why? @ -none Did you discuss the management of the patient with other professionals (professionals i.e. , PA, INDUSTRIAL ORGANIZATION MANAGER, lab, RT, psych nurse, social sciences lecturer, outside sales representative insurance, teacher, psychological operations officer, porter sample case)? Give summary @ -no Was smoking cessation discussed for >3mins.? @ -no Was critical care preformed (if so, how long)? @ -no Were there social determinants of health that impacted care today? How? (Homeles sness, low income, unemployed, alcoholism, drug addiction, transportation, low edu. Level, literacy, decrease access to med. care, [facility], rehab)? @ -none Was there de-escalation of care discussed even if they declined (Discuss DNR or withdrawal of care, Hospice)? DNR status @ -no What co-morbidities impacted this encounter? (DM, HTN, Smoking, COPD, CAD, Cancer, CVA, ARF, Chemo, Hep., AIDS, mental health diagnosis, sleep apnea, morbid obesity)? @ -none Was patient admitted / discharged? Hospital course, mention meds given and route, prescriptions, significant lab abnormalities, going to OR and other pertinent info. @ - 27 female to the emergency department for evaluation of abdominal pain with urinary tract infection. Patient placed on antibiotics and can be discharged home Discharge Undiagnosed new problem with uncertain prognosis? @ -no Drug Therapy requiring intensive monitoring for toxicity (Heparin, Nitro, Insulin, Cardizem)? @ -no Were any procedures done? @ -no Diagnosis/symptom? @ -Urinary retention, Kendall catheter, UTI Acute, or Chronic, or Acute on Chronic? @ -Acute Uncomplicated (without systemic symptoms) or Complicated (systemic symptoms)? @ -Complicated Side effects of treatment? @ -no Exacerbation, Progression, or Severe Exacerbation? @ -exacerbation Poses a threat to life or bodily function? How? (Chest pain, [place], [place], pneumonia, PE, COPD, DKA, ARF, appy, cholecystitis, CVA, Diverticulitis, Homicidal, Suicidal, threat to staff... and all critical care pts) @ -yno Medical Decision Making - Medical Decision Making 27 female to the emergency department for evaluation of abdominal pain with urinary tract infection. Patient placed on antibiotics and can be discharged home - Lab Data Lab Results 05/20/23 Range/Units 00:29 Urine Color Yellow Urine Appearance Cloudy H (Clear) Urine pH 7.5 (5.0-8.0) Ur Specific [place] 1.011 (1.001-1.035) Urine Protein 2+ H (Negative) Urine Glucose (UA) Trace H (Negative) Urine Ketones Negative (Negative) Urine Blood Large H (Negative) Urine Nitrite Negative (Negative) Urine Bilirubin Negative (Negative) Urine Urobilinogen 2.0 (<2.0) mg/dL Ur Leukocyte Esterase Large H (Negative) Urine RBC >182 H (0-5) /hpf Urine WBC >182 H (0-5) /hpf Urine Bacteria Many H (None) /hpf Hyaline Casts 18 H (0-2) /lpf Disposition Clinical Impression: Postoperative urinary retention, Urinary retention, Urinary tract infection Disposition: HOME SELF-CARE Condition: Good Instructions (If sedation given, give patient instructions): Urinary Tract Infection in Women (ED) Prescriptions: Amoxic-Pot Clav 875-125Mg [Augmentin 875-125] 1 tab PO Q12HR #20 tablet Is patient prescribed a controlled substance at d/c from ED?: No Referrals: None,Stated [Primary Care Provider] - 1-2 days Time of Disposition: 01:00
[2023-05-20 01:02] LABS: Appearance,Urine Cloudy (Clear); Bacteria,Urine Many /hpf; Bilirubin,Urine Negative (Negative); Blood,Urine Large (Negative); Color,Urine Yellow; Glucose,Urine (UA) Trace (Negative); Hyaline Casts,Urine 18 /lpf (0-2); Ketones,Urine Negative (Negative); Leukocyte Esterase,Urine Large (Negative); Nitrite,Urine Negative (Negative); PH, Urine 7.5 (5.0-8.0); Protein,Urine 2+ (Negative); RBC,Urine >182 /hpf (0-5); Specific Gravity,Urine 1.011 (1.001-1.035); WBC,Urine >182 /hpf (0-5)
[2023-05-20] MEDS ORDERED: AMOXIC-POT CLAV 875-125MG 1 EACH TAB PO STA (01:11)
[2023-05-20] MEDS ORDERED: AMOXIC-POT CLAV 875MG STARTER PACK 2 TAB BTL PO STA (01:11)
== END 2023-05-20 01:40 | disposition home or self-care (01) ==
LOC: EC 23:24
DX: N39.0 Urinary tract infection, site not specified (principal); B97.0 Adenovirus as the cause of diseases classified elsewhere; Z86.59 Personal history of other mental and behavioral disorders
CPT/HCPCS: 81001; 99283

== ENCOUNTER → 2023-10-10 | Outpatient (CLI) | payer OTHER ==
[2023-10-11 02:36] LABS: Basophils # (A) 0.06 X 10*3/uL (0.00-0.10); Basophils % (A) 0.8 %; Eosinophils # (A) 0.35 X 10*3/uL (0.04-0.35); Eosinophils % (A) 4.4 %; HCT 41.7 % (37.2-46.3); Lymphocytes # (A) 2.81 X 10*3/uL (0.90-5.00); Lymphocytes % (A) 35.6 %; MCH 30.4 pg (27.0-32.0); MCHC 33.6 g/dL (32.0-37.0); MCV 90.7 FL (80.0-97.0); Mean Platelet Volume 9.2 FL (9.5-12.2); Monocytes # (A) 0.64 X 10*3/uL (0.20-1.00); Monocytes % (A) 8.1 %; NRBC Per 100 WBC 0 X 10*3/uL (0.00-0.01); Neutrophils # (A) 4.01 X 10*3/uL (1.80-7.70); Neutrophils % (A) 50.7 %; Platelet Count 429 X 10*3/uL (140-440); RDW 13.2 % (11.5-14.5)
[2023-10-11 02:46] LABS: ALT 55 U/L (8-44); AST 32 U/L (13-35); Albumin 4.7 g/dL (3.8-4.9); Albumin/Globulin Ratio 1.57 Ratio (1.60-3.17); Alkaline Phosphatase 99 U/L (41-126); Calcium 9.9 mg/dL (8.7-10.3); Chloride 108 mmol/L (96-109); Glucose 82 mg/dL (70-110); Sodium 143 mmol/L (135-145); Total Bilirubin 0.3 mg/dL (0.3-1.2); Total Protein 7.7 g/dL (6.2-8.2)
== END | disposition home or self-care (01) ==
LOC: LABWHC1 16:24
PROVIDERS: ATTEND Internal Medicine Gastroenterology
DX: R82.2 Biliuria (principal)
CPT/HCPCS: 36415; 80053; 85025

== ENCOUNTER 2025-02-26 23:08 | Inpatient (IN) | payer OTHER ==
--- NOTE | 2025-02-26 23:49 | ED ---
Back Pain HPI - General Chief Complaint: Urogenital Stated Complaint: Back Pain, Nausea Time Seen by Provider: 02/26/25 23:30 Source: patient, RN notes reviewed Limitations: no limitations - History of Present Illness Initial Comments: This is a 29-year-old female who presents to the emergency department for back pain. States that it started 2 hours prior to arrival. Denies any injuries. Unsure if the pain in the back is localized to any particular side. She has very mild radiation to her right lower quadrant. Pain does not get worse with movement. Reports associated nausea but no vomiting. Denies any injuries or history of kidney stones. Denies any history of similar pain in the past. She was treated with Keflex for a UTI about a month ago. She was having burning with urination, urgency, and frequency. However, states that the Keflex was not effective and she continues to have these symptoms. MD Complaint: back pain - Related Data Home Medications Medication Instructions Recorded Confirmed Sertraline [Zoloft] 75 mg PO HS 02/27/25 02/27/25 Allergies Allergy/AdvReac Type Severity Reaction Status Date / Time skin glue Allergy skin falls Uncoded 02/27/25 10:03 off Review of Systems ROS Statement: Those systems with pertinent positive or pertinent negative responses have been documented in the HPI. ROS Other: All systems not noted in ROS Statement are negative. Past Medical History Past Medical History: No Reported History Additional Past Medical History / Comment(s): Sl edema ankles. History of Any Multi-Drug Resistant Organisms: None Reported Past Surgical History: Section Past Anesthesia/Blood Transfusion Reactions: No Reported Reaction Past Psychological History: ADD/ADHD, Depression Smoking Status: Never smoker Past Alcohol Use History: None Reported Past Drug Use History: None Reported - Past Family History Mother Family Medical History: No Reported History General Exam Limitations: no limitations General appearance: alert, in no apparent distress Head exam: Present: atraumatic, normocephalic, normal inspection Respiratory exam: Present: normal lung sounds bilaterally. Absent: respiratory distress, wheezes, rales, rhonchi, stridor Cardiovascular Exam: Present: regular rate, normal rhythm GI/Abdominal exam: Present: soft, tenderness (RLQ). Absent: distended Back exam: Present: other (Tenderness to palpation of the lower lumbar spine. No erythema or other overlying skin changes.) Neurological exam: Present: alert, oriented X3, CN II-XII intact Psychiatric exam: Present: normal affect, normal mood Skin exam: Present: warm, dry, intact, normal color. Absent: rash Course Vital Signs 02/26/25 02/27/25 02/27/25 23:23 02:40 03:17 Temperature 98.1 F 99.3 F 100.3 F H Pulse Rate 96 106 H 110 H Respiratory 20 18 18 Rate Blood Pressure 113/49 100/56 89/53 O2 Sat by Pulse 98 100 100 Oximetry 02/27/25 02/27/25 02/27/25 05:33 06:30 06:45 Temperature 99 F 98.8 F Pulse Rate 106 H 101 H Respiratory 20 17 Rate Blood Pressure 90/49 102/57 106/58 O2 Sat by Pulse 99 97 Oximetry 02/27/25 02/27/25 02/27/25 07:19 07:37 08:00 Temperature 98.5 F Pulse Rate 93 90 Respiratory 16 18 18 Rate Blood Pressure 81/50 101/65 O2 Sat by Pulse 97 98 Oximetry 02/27/25 02/27/25 02/27/25 09:00 11:00 12:06 Temperature 99.0 F Pulse Rate 91 95 94 Respiratory 16 18 18 Rate Blood Pressure 104/65 105/61 105/69 O2 Sat by Pulse 98 98 Oximetry 02/27/25 15:50 Temperature Pulse Rate 82 Respiratory 16 Rate Blood Pressure 108/74 O2 Sat by Pulse 98 Oximetry Medical Decision Making - Medical Decision Making This is a 29-year-old female who presents to the emergency department for back pain and nausea. Was pt. sent in by a medical professional or institution? @ -No Did you speak to anyone other than the patient for history? @ -No Did you review nursing and triage notes? @ -Yes, and I agree, it is accurate with regards to the patient's symptoms. Were old charts reviewed? @ -No Differential Diagnosis? @ -Differential Back Pain: Strain, zoster, cauda equina syndrome, epidural abscess, vertebral osteomyelitis, discitis, fracture, subluxation, disc herniation, DJD, spinal stenosis, dissection, AAA, pancreatitis, peptic ulcer disease, pyelonephritis, kidney stone, this is not meant to be an all-inclusive list. EKG interpreted by me (3pts min.)? @ -Not obtained X-rays interpreted by me (1pt min.)? @ -Chest x-ray obtained, my interpretation identifies no localized cons olidations or infiltrates. CT interpreted by me (1pt min.)? @ -CT scan of the abdomen and pelvis obtained. My interpretation identifies no bowel wall thickening or free air. U/S interpreted by me (1pt. min.)? @ -Not obtained What testing was considered but not performed? (CT, X-rays, U/S, labs)? Why? @ -None What meds were considered but not given? Why? @ -None Did you discuss the management of the patient with other professionals? @ -No Did you reconcile home meds? @ -No Was smoking cessation discussed for >3mins.? @ -No Was critical care preformed (if so, how long)? @ -No Were there social determinants of health that impacted care today? How? (Homelessness, low income, unemployed, alcoholism, drug addiction, transportation, low edu. Level, literacy, decrease access to med. care, group home, rehab)? @ -No Was there de-escalation of care discussed even if they declined? (Discuss DNR or withdrawal of care, Hospice)? @ -No What co-morbidities impacted this encounter? (DM, HTN, Smoking, COPD, CAD, Cancer, CVA, Hep., AIDS, mental health diagnosis, sleep apnea, morbid obesity)? @ -None Was patient admitted / discharged? @ -Admitted. Lab work demonstrates leukocytosis with a white blood cell count of 17.74. Lactic acid elevated at 2.1. She has a mild elevation in AST/ALT which have also been elevated in the past. Urinalysis not suggestive of infection. Given the leukocytosis with elevated heart rate, we did obtain a blood culture and she was given 2 g of ceftriaxone empirically due to patient meeting SIRS criteria. She did start to become febrile, more tachycardic, and hypotensive in the emergency department. Her temperature then reached 100.3 F and her BP dropped to 89/53. She was given an additional liter of IV fluids along with [address] scan of the abdomen and pelvis reveals no acute process to account for her symptoms. She is noted to have a 4.2 cm right ovarian cyst. Patient appeared to have some sort of infection, however the source was not clear. With the pain in the lower back and associated fevers, something like discitis cannot be excluded. Patient denies any IV drug use. Patient admitted to medicine for low back pain with fevers. Consult placed for orthopedic spine. She was also started on vancomycin with the ceftriaxone. Order placed for an MRI of the lumbar spine to further evaluate this possibility. Cepheid 4 Plex testing and chest x-ray were also ordered at the time of admission to evaluate for other possible sources of infection. Case discussed with ED attending Dr. Arzola. Undiagnosed new problem with uncertain prognosis? @ -None Drug Therapy requiring intensive monitoring for toxicity (Heparin, Nitro, Insulin, Cardizem)? @ -None Were any procedures done? @ -None Diagnosis/symptom? @ -Low back pain, fever, SIRS Acute, or Chronic, or Acute on Chronic? @ -Acute Uncomplicated (without systemic symptoms) or Complicated (systemic symptoms)? @ -Complicated Side effects of treatment? @ -None Exacerbation, Progression, or Severe Exacerbation] @ -Not applicable Poses a threat to life or bodily function? @ -Yes, can lead to septic shock and - Lab Data Result diagrams: 02/27/25 00:00 02/27/25 00:00 Lab Results 02/27/25 02/27/25 02/27/25 Range/Units 00:00 00:00 00:00 WBC 17.74 H (4.50-10.00) 10*3/uL RBC 4.18 (4.10-5.20) 10*6/uL Hgb 13.2 (12.0-15.0) g/dL Hct 37.6 (37.2-46.3) % MCV 90.0 (80.0-97.0) fL MCH 31.6 (27.0-32.0) pg MCHC 35.1 (32.0-37.0) g/dL Plt Count 486 H (140-440) 10*3/uL MPV 8.7 L (9.5-12.2) fL Immature Gran % (Auto) 0.3 % Neutrophils % 79.6 % Lymphocytes % 16.8 % Monocytes % 2.3 % Eosinophils % 0.7 % Basophils % 0.3 % Immature Gran # 0.05 H (0.00-0.04) 10*3/uL Neutrophils # 14.12 H (1.80-7.70) 10*3/uL Lymphocytes # 2.98 (0.90-5.00) 10*3/uL Monocytes # 0.41 (0.20-1.00) 10*3/uL Eosinophils # 0.12 (0.04-0.35) 10*3/uL Basophils # 0.06 (0.00-0.10) 10*3/uL ESR (0-20) mm/Hr Sodium 142 (137-145) mmol/L Potassium 4.4 (3.5-5.1) mmol/L Chloride 103 (98-107) mmol/L Carbon Dioxide 24 (22-30) mmol/L Anion Gap 15 mmol/L BUN 12 (7-17) mg/dL Creatinine 0.58 (0.52-1.04) mg/dL Est GFR (CKD-EPI)AfAm >90 (>60 ml/min/1.73 sqM) Est GFR (CKD-EPI)NonAf >90 (>60 ml/min/1.73 sqM) Glucose 91 (74-99) mg/dL Lactic Ac Sepsis Rflx Plasma Lactic Acid Sukhdev 2.1 H* (0.7-2.0) mmol/L Calcium 10.1 (8.4-10.2) mg/dL Total Bilirubin 0.7 (0.2-1.3) mg/dL AST 39 H (14-36) U/L ALT 40 H (4-34) U/L Alkaline Phosphatase 102 (38-126) U/L C-Reactive Protein (<1.0) mg/dL Total Protein 7.9 (6.3-8.2) g/dL Albumin 4.8 (3.5-5.0) g/dL Lipase 46 (23-300) U/L HCG, Qual Not Detected Urine Color Urine Appearance (Clear) Urine pH (5.0-8.0) Ur Specific Alpha (1.001-1.035) Urine Protein (Negative) Urine Glucose (UA) (Negative) Urine Ketones (Negative) Urine Blood (Negative) Urine Nitrite (Negative) Urine Bilirubin (Negative) Urine Urobilinogen (<2.0) mg/dL Ur Leukocyte Esterase (Negative) Urine RBC (0-5) /hpf Urine WBC (0-5) /hpf Ur Squamous Epith Cells (0-4) /hpf Urine Bacteria (None) /hpf Urine Mucus (None) /hpf 02/27/25 02/27/25 02/27/25 Range/Units 00:01 00:01 01:16 WBC (4.50-10.00) 10*3/uL RBC (4.10-5.20) 10*6/uL Hgb (12.0-15.0) g/dL Hct (37.2-46.3) % MCV (80.0-97.0) fL MCH (27.0-32.0) pg MCHC (32.0-37.0) g/dL Plt Count (140-440) 10*3/uL MPV (9.5-12.2) fL Immature Gran % (Auto) % Neutrophils % % Lymphocytes % % Monocytes % % Eosinophils % % Basophils % % Immature Gran # (0.00-0.04) 10*3/uL Neutrophils # (1.80-7.70) 10*3/uL Lymphocytes # (0.90-5.00) 10*3/uL Monocytes # (0.20-1.00) 10*3/uL Eosinophils # (0.04-0.35) 10*3/uL Basophils # (0.00-0.10) 10*3/uL ESR 23 H (0-20) mm/Hr Sodium (137-145) mmol/L Potassium (3.5-5.1) mmol/L Chloride (98-107) mmol/L Carbon Dioxide (22-30) mmol/L Anion Gap mmol/L BUN (7-17) mg/dL Creatinine (0.52-1.04) mg/dL Est GFR (CKD-EPI)AfAm (>60 ml/min/1.73 sqM) Est GFR (CKD-EPI)NonAf (>60 ml/min/1.73 sqM) Glucose (74-99) mg/dL Lactic Ac Sepsis Rflx Y Plasma Lactic Acid Sukhdev (0.7-2.0) mmol/L Calcium (8.4-10.2) mg/dL Total Bilirubin (0.2-1.3) mg/dL AST (14-36) U/L ALT (4-34) U/L Alkaline Phosphatase (38-126) U/L C-Reactive Protein 0.9 (<1.0) mg/dL Total Protein (6.3-8.2) g/dL Albumin (3.5-5.0) g/dL Lipase (23-300) U/L HCG, Qual Urine Color Urine Appearance (Clear) Urine pH (5.0-8.0) Ur Specific Alpha (1.001-1.035) Urine Protein (Negative) Urine Glucose (UA) (Negative) Urine Ketones (Negative) Urine Blood (Negative) Urine Nitrite (Negative) Urine Bilirubin (Negative) Urine Urobilinogen (<2.0) mg/dL Ur Leukocyte Esterase (Negative) Urine RBC (0-5) /hpf Urine WBC (0-5) /hpf Ur Squamous Epith Cells (0-4) /hpf Urine Bacteria (None) /hpf Urine Mucus (None) /hpf 02/27/25 02/27/25 Range/Units 02:45 04:06 WBC (4.50-10.00) 10*3/uL RBC (4.10-5.20) 10*6/uL Hgb (12.0-15.0) g/dL Hct (37.2-46.3) % MCV (80.0-97.0) fL MCH (27.0-32.0) pg MCHC (32.0-37.0) g/dL Plt Count (140-440) 10*3/uL MPV (9.5-12.2) fL Immature Gran % (Auto) % Neutrophils % % Lymphocytes % % Monocytes % % Eosinophils % % Basophils % % Immature Gran # (0.00-0.04) 10*3/uL Neutrophils # (1.80-7.70) 10*3/uL Lymphocytes # (0.90-5.00) 10*3/uL Monocytes # (0.20-1.00) 10*3/uL Eosinophils # (0.04-0.35) 10*3/uL Basophils # (0.00-0.10) 10*3/uL ESR (0-20) mm/Hr Sodium (137-145) mmol/L Potassium (3.5-5.1) mmol/L Chloride (98-107) mmol/L Carbon Dioxide (22-30) mmol/L Anion Gap mmol/L BUN (7-17) mg/dL Creatinine (0.52-1.04) mg/dL Est GFR (CKD-EPI)AfAm (>60 ml/min/1.73 sqM) Est GFR (CKD-EPI)NonAf (>60 ml/min/1.73 sqM) Glucose (74-99) mg/dL Lactic Ac Sepsis Rflx Plasma Lactic Acid Sukhdev 1.4 (0.7-2.0) mmol/L Calcium (8.4-10.2) mg/dL Total Bilirubin (0.2-1.3) mg/dL AST (14-36) U/L ALT (4-34) U/L Alkaline Phosphatase (38-126) U/L C-Reactive Protein (<1.0) mg/dL Total Protein (6.3-8.2) g/dL Albumin (3.5-5.0) g/dL Lipase (23-300) U/L HCG, Qual Urine Color Colorless Urine Appearance Clear (Clear) Urine pH 5.5 (5.0-8.0) Ur Specific Alpha 1.020 (1.001-1.035) Urine Protein Negative (Negative) Urine Glucose (UA) Negative (Negative) Urine Ketones Negative (Negative) Urine Blood Small H (Negative) Urine Nitrite Negative (Negative) Urine Bilirubin Negative (Negative) Urine Urobilinogen <2.0 (<2.0) mg/dL Ur Leukocyte Esterase Negative (Negative) Urine RBC 1 (0-5) /hpf Urine WBC <1 (0-5) /hpf Ur Squamous Epith Cells 2 (0-4) /hpf Urine Bacteria Rare H (None) /hpf Urine Mucus Rare H (None) /hpf - Radiology Data Radiology results: report reviewed, image reviewed Disposition Clinical Impression: Low back pain, Fever, SIRS (systemic inflammatory response syndrome) Disposition: ADMITTED IP TO THIS HOSP
[2025-02-26] MEDS: KETOROLAC 15 MG/ML 1 ML VIAL IVP STA (23:56)
[2025-02-26] MEDS: ONDANSETRON 4 MG/2 ML VIAL IVP STA (23:56)
[2025-02-26] MEDS: MORPHINE SULFATE 4 MG/ML SYRINGE IVP STA (23:58)
[2025-02-26] MEDS: SODIUM CHLORIDE 0.9% 1,000 ML IV ONE (23:58)
[2025-02-27 00:56] LABS: Basophils # (A) 0.06 10*3/uL (0.00-0.10); Basophils % (A) 0.3 %; Eosinophils # (A) 0.12 10*3/uL (0.04-0.35); Eosinophils % (A) 0.7 %; HCT 37.6 % (37.2-46.3); HGB 13.2 g/dL (12.0-15.0); Lymphocytes # (A) 2.98 10*3/uL (0.90-5.00); Lymphocytes % (A) 16.8 %; MCH 31.6 pg (27.0-32.0); MCHC 35.1 g/dL (32.0-37.0); MCV 90.0 fL (80.0-97.0); Monocytes # (A) 0.41 10*3/uL (0.20-1.00); Monocytes % (A) 2.3 %; Neutrophils # (A) 14.12 10*3/uL (1.80-7.70); Neutrophils % (A) 79.6 %; Platelet Count 486 10*3/uL (140-440); RBC 4.18 10*6/uL (4.10-5.20); RDW 12.3 % (11.5-14.5); WBC 17.74 10*3/uL (4.50-10.00)
[2025-02-27 01:11] LABS: ALT 40 U/L (4-34); AST 39 U/L (14-36); African American GFR (CKD) >90 (>60 ml/min/1.73 sqM); Albumin 4.8 g/dL (3.5-5.0); Alkaline Phosphatase 102 U/L (38-126); Anion Gap 15 mmol/L; Blood Urea Nitrogen 12 mg/dL (7-17); Calcium 10.1 mg/dL (8.4-10.2); Carbon Dioxide 24 mmol/L (22-30); Chloride 103 mmol/L (98-107); Glucose 91 mg/dL (74-99); HCG,Qualitative Serum Not Detected; Lipase 46 U/L (23-300); Non-African American GFR(CKD) >90 (>60 ml/min/1.73 sqM); Potassium 4.4 mmol/L (3.5-5.1); Sodium 142 mmol/L (137-145); Total Protein 7.9 g/dL (6.3-8.2)
[2025-02-27] MEDS: cefTRIAXone IN SWFI 1,000 MG/10 ML SYRINGE IVP STA (01:53)
[2025-02-27] MEDS: SODIUM CHLORIDE 0.9% 1,000 ML IV ONE ×2 (03:36→06:44)
[2025-02-27] MEDS: ACETAMINOPHEN IV (For NPO) 1,000 MG in EMPTY BAG 1 BAG IVPB ONE (03:46)
[2025-02-27 04:22] LABS: Bacteria,Urine Rare /hpf; Bilirubin,Urine Negative (Negative); Blood,Urine Small (Negative); Color,Urine Colorless; Glucose,Urine (UA) Negative (Negative); Ketones,Urine Negative (Negative); Leukocyte Esterase,Urine Negative (Negative); Mucus,Urine Rare /hpf; Nitrite,Urine Negative (Negative); PH, Urine 5.5 (5.0-8.0); Protein,Urine Negative (Negative); RBC,Urine 1 /hpf (0-5); Specific Gravity,Urine 1.020 (1.001-1.035); Squamous Epithelial Cell,Urine 2 /hpf (0-4); Urobilinogen,Urine <2.0 mg/dL (<2.0); WBC,Urine <1 /hpf (0-5)
--- NOTE | 2025-02-27 04:24 | CT ---
EXAM: CT Abdomen and Pelvis Without Intravenous Contrast CLINICAL HISTORY: ITS.REASON CT Reason: Right flank and RLQ pain TECHNIQUE: Axial computed tomography images of the abdomen and pelvis without intravenous contrast. CTDI is 11.4 mGy and DLP is 682.7 mGy-cm. This CT exam was performed using one or more of the following dose reduction techniques: automated exposure control, adjustment of the mA and/or kV according to patient size, and/or use of iterative reconstruction technique. COMPARISON: No relevant prior studies available. FINDINGS: Limitations: Limited evaluation in the absence of contrast and complete coronal imaging. Lung bases: Unremarkable. No mass. No consolidation. ABDOMEN: Liver: Hepatic steatosis. Gallbladder and bile ducts: Unremarkable. No calcified stones. No ductal dilation. Pancreas: Unremarkable. No ductal dilation. Spleen: Unremarkable. No splenomegaly. Adrenals: Unremarkable. No mass. Kidneys and ureters: No evidence of radiopaque renal calculi or signs of collecting system dilatation. Stomach and bowel: No evidence of bowel obstruction. No mucosal thickening. PELVIS: Appendix: Normal appendix. Bladder: Unremarkable. No stones. Reproductive: 4.2 right ovarian cyst. ACR White Paper guidelines (Garrido, et. al. JACR 2020;17(2):248-254) suggest no follow-up is necessary. ABDOMEN and PELVIS: Intraperitoneal space: Unremarkable. No free air. No significant fluid collection. Bones/joints: Degenerative changes in the spine. No acute fracture. No dislocation. Soft tissues: Umbilical hernia containing fat. Diastasis recti. Vasculature: Unremarkable. No abdominal aortic aneurysm. Lymph nodes: Unremarkable. No enlarged lymph nodes. IMPRESSION: 1. No evidence of radiopaque renal calculi or signs of collecting system dilatation. 2. 4.2 right ovarian cyst. ACR White Paper guidelines (Garrido, et. al. JACR 2020;17(2):248-254) suggest no follow-up is necessary. 3. Normal appendix. 4. No evidence of bowel obstruction. 5. No other acute findings.
[2025-02-27] MEDS ORDERED: VANCOMYCIN IV PER PHARMACY 1 EACH MISC MISCELLANE PRN (04:43)
[2025-02-27] MEDS ORDERED: MORPHINE SULFATE 4 MG/ML SYRINGE IV PRN (04:46)
[2025-02-27] MEDS ORDERED: IBUPROFEN 400 MG TAB PO PRN (04:46)
[2025-02-27] MEDS ORDERED: ONDANSETRON 4 MG/2 ML VIAL IVP PRN (04:46)
[2025-02-27] MEDS ORDERED: NALOXONE 0.4 MG/ML 1 ML VIAL IV PRN (04:46)
[2025-02-27] MEDS ORDERED: ACETAMINOPHEN TAB 325 MG TAB PO PRN (04:46)
[2025-02-27] MEDS: LACTATED RINGERS 500 ML IV ONE (05:15)
[2025-02-27] MEDS: LACTATED RINGERS 1,000 ML IV SCH (05:15)
--- NOTE | 2025-02-27 06:01 | XR ---
EXAM: XR Chest, 2 Views CLINICAL HISTORY: ITS.REASON XR Reason: Fever TECHNIQUE: Frontal and lateral views of the chest. COMPARISON: X-ray dated 05/06/2021. FINDINGS: Lungs: Unremarkable. No consolidation. Pleural space: Unremarkable. No pneumothorax. Heart: Unremarkable. No cardiomegaly. Mediastinum: Unremarkable. Normal mediastinal contour. Bones/joints: Unremarkable. No acute fracture. IMPRESSION: Normal chest x-rays.
[2025-02-27 06:24] LABS: RSV Not Detected (Not Detectd)
[2025-02-27] MEDS: SODIUM CHLORIDE 0.9% 1,000 ML IV SCH (07:36)
[2025-02-27] MEDS: VANCOMYCIN 1,750 MG in SODIUM CHLORIDE 0.9% 500 ML 500 ML IVPB ONE (07:38)
[2025-02-27] MEDS: PANTOPRAZOLE 40 MG/10 ML VIAL IV SCH (09:15)
--- NOTE | 2025-02-27 11:25 | P.CNOR ---
History of Present Illness - [facility] Consult date: 02/27/25 Consult reason: low back pain History of present illness: Patient is a 29-year-old female who presented to the [facility] emergency room on 02/26/2025 with acute onset back pain. Patient was apparently at a fair when she got up off the bleachers and noticed he sharp shooting pain in her back that radiated to her right lower quadrant. Patient did not think much of it, over the next few hours the symptoms did worsen. Patient reported to the hospital for further evaluation and management. Upon arrival to the hospital, patient underwent multiple imaging and lab test. Apparently the patient has been dealing with a UTI for about a month, she was prescribed oral antibiotics from an urgent care. Patient states that she follows up with no primary care doctor Patient was evaluated at bedside, she was sleeping on initial arrival, she was easily awoken. Patient states that her back has bothered her on and off since having kids, she does have 3 kids her youngest being about 2 years. Patient denies any loss of bowel or bladder function at this time. Patient does admit to the sense that she does not empty her bladder fully since having kids. 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 Patient denies any genital or perineal numbness or tingling at this time. Patient denies any paresthesias to the bilateral lower extremities at this time. She notes most of the pain across the center of her back, radiates to the top of her hips. Motion of the lower extremities does reproduce that pain. Patient denies any simone weakness or numbness or tingling to the bilateral upper extremities. She denies any obvious trauma. Patient was noted to have a significantly evaded white blood cell count along with sed rate, blood cultures have been ordered. An MRI of the lumbar spine with and without contrast was ordered by the ER staff. Review of Systems Constitutional: Reports as per HPI Past Medical History Past Medical History: No Reported History Additional Past Medical History / Comment(s): Sl edema ankles. History of Any Multi-Drug Resistant Organisms: None Reported Past Surgical History: Section Past Anesthesia/Blood Transfusion Reactions: No Reported Reaction Past Psychological History: ADD/ADHD, Depression Smoking Status: Never smoker Past Alcohol Use History: None Reported Past Drug Use History: None Reported - Past Family History Mother Family Medical History: No Reported History Medications and Allergies Home Medications Medication Instructions Recorded Confirmed Type Sertraline [Zoloft] 75 mg PO HS 02/27/25 02/27/25 History Allergies Allergy/AdvReac Type Severity Reaction Status Date / Time skin glue Allergy skin falls Uncoded 02/27/25 10:03 off Physical Examination Gen: AOx3, NAD VSS stable at this time Integument: No open lesions, sores or areas of erythema appreciated at the cervical, thoracic or lumbar spine Palpation: Patient does demonstrate tenderness with palpation to the paraspinal lumbar region along with the bilateral SI joint region ROM: Full range of motion all major muscle groups of the bilateral upper extremities, no focal deficits appreciated Full range of motion in all major muscular's of the bilateral lower extremities, no focal deficits appreciated Sensory Exam: Senory exam to light touch is intact C5-T1 Senosry exam to light touch is intact L2-S1 Motor: 5/5 strength appreciated to the bilateral upper extremities with shoulder elevat ion, shoulder abduction, elbow flexion , elbow extension, wrist extension, wrist flexion, 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 4/5 strength appreciated the bilateral lower extremities with hip flexion, knee extension, knee flexion, plantarflexion, dorsiflexion, EHL, FHL, strength deficit is likely due to pain Reflexes: 2/4 in all UE and LE Jil's bilaterally Negative clonus bilaterally Special Test: Positive straight leg raise bilaterally Logroll maneuver bilaterally reproduces no pain in the groin bilaterally Results - Labs Labs: Abnormal Lab Results - Last 24 Hours (Table) 02/27/25 02/27/25 02/27/25 Range/Units 00:00 00:00 00:00 WBC 17.74 H (4.50-10.00) 10*3/uL Plt Count 486 H (140-440) 10*3/uL MPV 8.7 L (9.5-12.2) fL Immature Gran # 0.05 H (0.00-0.04) 10*3/uL Neutrophils # 14.12 H (1.80-7.70) 10*3/uL ESR (0-20) mm/Hr Plasma Lactic Acid Sukhdev 2.1 H* (0.7-2.0) mmol/L AST 39 H (14-36) U/L ALT 40 H (4-34) U/L Urine Blood (Negative) Urine Bacteria (None) /hpf Urine Mucus (None) /hpf 02/27/25 02/27/25 Range/Units 00:01 02:45 WBC (4.50-10.00) 10*3/uL Plt Count (140-440) 10*3/uL MPV (9.5-12.2) fL Immature Gran # (0.00-0.04) 10*3/uL Neutrophils # (1.80-7.70) 10*3/uL ESR 23 H (0-20) mm/Hr Plasma Lactic Acid Sukhdev (0.7-2.0) mmol/L AST (14-36) U/L ALT (4-34) U/L Urine Blood Small H (Negative) Urine Bacteria Rare H (None) /hpf Urine Mucus Rare H (None) /hpf H & H 02/27/25 Range/Units 00:00 Hgb 13.2 (12.0-15.0) g/dL Hct 37.6 (37.2-46.3) % Result Diagrams: 02/27/25 00:00 02/27/25 00:00 Assessment and Plan Assessment: Low back pain Leukocytosis Elevated inflammatory markers History of UTI Other medical comorbidities Plan: Imaging: CT scan abdomen/pelvis report was reviewed. No acute osseous changes were noted throughout the lumbar spine. There was some mild degenerative disc changes noted in the L5-S1 region Plan: I was able to discuss the case, this to include physical exam findings and imaging studies with my attending Dr. Blanc Await MRI results of the lumbar spine Pain control, would recommend use of Tylenol, anti-inflammatories, muscle rel axers Weight-bear as tolerated DVT prophylaxis per primary medical service Other medical specialty recommendations appreciate Further recommendations to follow Time with Patient: Less than 30
[2025-02-27] MEDS ORDERED: VANCOMYCIN 1,500 MG in SODIUM CHLORIDE 0.9% 500 ML 500 ML IVPB SCH (16:00)
[2025-02-27] MEDS: CYCLOBENZAPRINE 10 MG TAB PO PRN (16:23)
[2025-02-27] MEDS: HYDROcodone/APAP 5-325MG 1 EACH TAB PO PRN (17:55)
[2025-02-27] MEDS: VANCOMYCIN 1,500 MG in SODIUM CHLORIDE 0.9% 500 ML 500 ML IVPB SCH (18:29)
--- NOTE | 2025-02-27 22:32 | P.CONS ---
History of Present Illness - Reason for Consult Consult date: 02/27/25 Sepsis Requesting physician: Juan Miguel Varner - Chief Complaint Back pain x 1 day - History of Present Illness Patient is a 29-year-old female with a past medical history significant for depression ADHD presenting the hospital for evaluation of lower back pain that apparently started 2 hours before presenting to the hospital yesterday patient pain has been mostly in the lower back and the patient described the pain to be sharp almost 10 out of 10 with some radiation to the left lower extremity patient denies having any weakness in the leg and no bowel or bladder problem patient denies having any high-grade fever or any chills however she did have a low-grade fever 100.3 F at 3 AM patient was tachycardic but not hypotensive or hypoxic no need for supplemental oxygen patient did have a white count of 17.74 creatinine 0.58 electrolyte has been normal lactic acid is elevated liver enzymes mildly elevated urine has been negative influenza RSV COVID testing has been negative patient did have a abdominal pelvis CT no evidence for radiopaque renal calculi the collecting system 4.2 cm right ovarian cyst normal appendix no evidence of bowel obstruction and no abnormality to the lumbar spine reported patient did have a chest x-ray did not show any acute a bnormality patient has been admitted to the hospital she was started on ceftriaxone and vancomycin infectious disease was consulted concerning for sepsis patient has been eval by orthopedic service and MRI of the lumbar spine has been ordered which is currently pending completion Review of Systems Positive point and negatives has been mentioned in the HPI, complete review of systems was performed and all other systems are negative Past Medical History Past Medical History: No Reported History Additional Past Medical History / Comment(s): Sl edema ankles. History of Any Multi-Drug Resistant Organisms: None Reported Past Surgical History: Section Past Anesthesia/Blood Transfusion Reactions: No Reported Reaction Past Psychological History: ADD/ADHD, Depression Smoking Status: Never smoker Past Alcohol Use History: None Reported Past Drug Use History: None Reported - Past Family History Mother Family Medical History: No Reported History Medications and Allergies Home Medications Medication Instructions Recorded Confirmed Type Sertraline [Zoloft] 75 mg PO HS 02/27/25 02/27/25 History Allergies Allergy/AdvReac Type Severity Reaction Status Date / Time skin glue Allergy skin falls Uncoded 02/27/25 10:03 off Physical Exam Vitals: Vital Signs Temp Pulse Resp BP Pulse Ox 02/27/25 11:00 99.0 F 95 18 105/61 98 02/27/25 09:00 91 16 104/65 98 02/27/25 08:00 90 18 101/65 98 02/27/25 07:37 18 02/27/25 07:19 98.5 F 93 16 81/50 97 02/27/25 06:45 98.8 F 101 H 17 106/58 97 02/27/25 06:30 102/57 02/27/25 05:33 99 F 106 H 20 90/49 99 02/27/25 03:17 100.3 F H 110 H 18 89/53 100 02/27/25 02:40 99.3 F 106 H 18 100/56 100 02/26/25 23:23 98.1 F 96 20 113/49 98 Intake and Output 02/26/25 02/27/25 02/27/25 22:59 06:59 14:59 Other: Voiding Method Toilet Weight 86.183 kg GENERAL DESCRIPTION: Middle-age female lying in bed, no distress. No tachypnea or accessory muscle of respiration use. HEENT: Shows Pallor , no scleral icterus. Oral mucous membrane is dry. No pharyngeal erythema or thrush NECK: Trachea central, no thyromegaly. LUNGS: Unlabored breathing. Clear to auscultation anteriorly. No wheeze or crackle. HEART: S1, S2, regular rate and rhythm. No loud murmur ABDOMEN: Soft, no tenderness , guarding or rigidity, no organomegaly EXTREMITIES: No edema of feet. SKIN: No rash, no masses palpable. NEUROLOGICAL: The patient is awake, alert, oriented x3, mood and affect normal. Results CBC & Chem 7: 02/27/25 00:00 02/27/25 00:00 Labs: Abnormal Lab Results - Last 24 Hours (Table) 02/27/25 02/27/25 02/27/25 Range/Units 00:00 00:00 00:00 WBC 17.74 H (4.50-10.00) 10*3/uL Plt Count 486 H (140-440) 10*3/uL MPV 8.7 L (9.5-12.2) fL Immature Gran # 0.05 H (0.00-0.04) 10*3/uL Neutrophils # 14.12 H (1.80-7.70) 10*3/uL ESR (0-20) mm/Hr Plasma Lactic Acid Sukhdev 2.1 H* (0.7-2.0) mmol/L AST 39 H (14-36) U/L ALT 40 H (4-34) U/L Urine Blood (Negative) Urine Bacteria (None) /hpf Urine Mucus (None) /hpf 02/27/25 02/27/25 Range/Units 00:01 02:45 WBC (4.50-10.00) 10*3/uL Plt Count (140-440) 10*3/uL MPV (9.5-12.2) fL Immature Gran # (0.00-0.04) 10*3/uL Neutrophils # (1.80-7.70) 10*3/uL ESR 23 H (0-20) mm/Hr Plasma Lactic Acid Sukhdev (0.7-2.0) mmol/L AST (14-36) U/L ALT (4-34) U/L Urine Blood Small H (Negative) Urine Bacteria Rare H (None) /hpf Urine Mucus Rare H (None) /hpf Assessment and Plan (1) Sepsis Current Visit: Yes Status: Acute Code(s): A41.9 - SEPSIS, UNSPECIFIED ORGANISM SNOMED Code(s): 92699440 (2) Low back pain Current Visit: Yes Status: Acute Code(s): M54.50 - LOW BACK PAIN, UNSPECIFIED SNOMED Code(s): 806498681 (3) SIRS (systemic inflammatory response syndrome) Current Visit: Yes Status: Acute Code(s): R65.10 - SIRS OF NON-INFECTIOUS ORIGIN W/O ACUTE ORGAN DYSFUNCTION SNOMED Code(s): 845610845 Plan: 1patient presented hospital with sepsis in this patient who did have fever tachycardia elevated white count as well as elevated lactic acid meeting criteria for SIRS/sepsis source could be lumbar discitis as the patient did have significant lower back pain and currently no other obvious focus of infection patient chest x-ray was reported negative CT abdominal pelvis did not show any acute abnormality and the patient had abdominal tenderness urine has been negative 2blood culture has been obtained results and will follow we will check inflammatory markers. 3will wait for the MRI of the lumbosacral spine to be completed. 4will empirically treat with Rocephin and vancomycin that should provide adequate antibiotic coverage while waiting for the workup to be completed. Question concern answered. We will follow on clinical condition and cultures to further adjust medication if needed Thank you for this consultation we will follow the patient along with you Dictation was produced using [employer] dictation software. please excuse any grammatical, word or spelling errors. Time with Patient: Greater than 30
--- NOTE | 2025-02-28 01:33 | HP ---
HISTORY AND PHYSICAL HISTORY OF PRESENT ILLNESS: A 29-year-old white female came to the hospital for back pain 2 hours prior to arrival. Denies any injuries. Radiating to the right lower quadrant, not worse with movement. She had some nausea. No vomiting. Denies any kidney stones. She has been on Keflex with UTI for a month ago. Denies frequent urination, frequency, or urgency. MEDICATIONS: Home medications include Pepcid, iron sulfate, and vitamins. PAST MEDICAL HISTORY: She has some edema in the ankles. She is . ADHD, depression. ALLERGIES: No known drug allergies. PHYSICAL EXAMINATION: GENERAL: No limitations. No acute distress. LUNGS: Clear. CARDIOVASCULAR: S1, S2. EXTREMITIES: There is some tenderness to palpation of lumbar spine. NEUROLOGIC: Alert and oriented x3. PSYCHIATRIC: Fair mood and affect. SKIN: Warm, dry, and intact. VITAL SIGNS: Appear to be stable. Temperature 98.1, pulse 96, respiratory rate 18 to 20, blood pressure 113/49, and O2 saturations 98%. ASSESSMENT: Back pain, nausea. We will get Orthopedics to see her for her lower back pain. White count is high at 17.74, so she has leukocytosis of unclear etiology. We will get Infectious Disease to see her for that. She may have a diskitis. She has a left shift on her white count. BUN and creatinine are normal. Elevated liver enzymes at this time. test was negative. Lipase is 46. Urine shows small blood, otherwise negative. Low back pain, fever and systemic inflammatory response syndrome. We will get Dr. Cormier to see her as well as Orthopedics for leukocytosis. Continue other medications. She is on vancomycin per the GI doctor and Infectious Disease. Prognosis is guarded. Please see further orders. MMODL / IJN: [id number] /
--- NOTE | 2025-02-28 02:39 | HP ---
HISTORY AND PHYSICAL HISTORY OF PRESENT ILLNESS: A 29-year-old female came to emergency room due to back pain prior to the admission. Pain radiates all the way up her back into her back, worse with movement. She said it started when she sat in the bleachers all day slightly bending forward due to a 30- pound kid on her lap. She denied any pain like this before. She has been recently treated with Keflex for UTI. She was having a burning with urination, urgency, frequency. Keflex was not effective. Continues to have these symptoms. PAST MEDICAL HISTORY: ADD, depression. MEDICINES: Zoloft 75 at night. ALLERGIES: Glue. REVIEW OF SYSTEMS: A 14-point review of systems otherwise negative. PAST SURGICAL HISTORY: , ADD, depression. Does not smoke. FAMILY HISTORY: Negative family history. PHYSICAL EXAMINATION: VITAL SIGNS: Stable, afebrile. CARDIOVASCULAR: S1, S2. VASCULAR: Normal dorsalis pedis, posterior radial pulses. HEMATOLOGY: Negative Homans. PSYCH: Fair mood and affect. NEUROLOGIC: Alert and oriented x3. GI: Soft. ASSESSMENT AND PLAN: Chronic back pain, urinary tract infection, rule out pyelonephritis and muscle relaxers for muscle spasms of the back. Lactic acidosis secondary to dehydration. Continue current treatment. Prognosis guarded. Muscle relaxers. Neurosurgery evaluation. Orthopedic evaluation. Dr. Cormier for possible infection. MMODL / IJN: [id number] /
[2025-02-28] MEDS: KETOROLAC 15 MG/ML 1 ML VIAL IVP PRN (08:30)
[2025-02-28 08:58] LABS: ALT 29 U/L (4-34); AST 29 U/L (14-36); African American GFR (CKD) >90 (>60 ml/min/1.73 sqM); Albumin 3.1 g/dL (3.5-5.0); Albumin/Globulin Ratio 1.2; Alkaline Phosphatase 77 U/L (38-126); Anion Gap 9 mmol/L; Blood Urea Nitrogen 5 mg/dL (7-17); Calcium 8.1 mg/dL (8.4-10.2); Carbon Dioxide 20 mmol/L (22-30); Chloride 111 mmol/L (98-107); Globulin 2.6 g/dL; Glucose 121 mg/dL (74-99); Non-African American GFR(CKD) >90 (>60 ml/min/1.73 sqM); Potassium 3.5 mmol/L (3.5-5.1); Sodium 140 mmol/L (137-145); Total Protein 5.7 g/dL (6.3-8.2)
--- NOTE | 2025-02-28 09:48 | P.PN ---
Subjective Progress Note Date: 02/28/25 Principal diagnosis: Low back pain Patient seen and examined this morning. She is resting comfortably in bed. Patient does report significant lumbar pain with occasional burning sensation into the left lower extremity. Patient states that she has been ambulatory the restroom. We are awaiting MRI of the lumbar spine, this has been scheduled today at 1215. Continue with current pain management. Further recommendations to follow. Objective - Vital Signs Vital signs: Vital Signs Temp 98.4 F 02/28/25 06:52 Pulse 101 H 02/28/25 06:52 Resp 16 02/28/25 06:52 BP 108/67 02/28/25 06:52 Pulse Ox 90 L 02/28/25 06:52 FiO2 Intake & Output 02/27/25 02/28/25 02/28/25 18:59 06:59 18:59 Weight 86.183 kg Other: Voiding Method Toilet # Voids 1 # Bowel Movements 0 - Exam Physical Examination General: The patient is awake and alert, in no acute distress. Skin: Skin is warm and dry with no obvious rashes or lesions. Eye: Pupils are equal, round and reactive to light, extra-ocular movements are intact; there is normal conjunctiva bilaterally. Neck: The neck is supple, there is no tenderness and ROM intact. Respiratory: Respirations are non-labored. Gastrointestinal: Soft, non-distended, non-tender abdomen. Back: There is mild tenderness to palpation in the paralumbar region. There is no obvious deformity. Musculoskeletal: ROM limited secondary to pain. 5/5 all major muscle groups Bilateral upper extremities 4/5 all major muscle groups Bilateral lower extremities Neurological: CN 2-12 intact. There are no obvious motor or sensory deficits. Movement and coordination equal and intact. Sensory exam to light touch intact C5-T1 and intact from L2-S1. Reflexes 2/4 in bilateral upper and lower extremities. Negative Hoffmans, babinski, and clonus signs. Psychiatric: Cooperative, appropriate mood & affect, normal judgment. - Labs CBC & Chem 7: 02/27/25 00:00 02/28/25 08:17 Labs: Abnormal Lab Results - Last 24 Hours (Table) 02/28/25 Range/Units 08:17 Chloride 111 H (98-107) mmol/L Carbon Dioxide 20 L (22-30) mmol/L BUN 5 L (7-17) mg/dL Glucose 121 H (74-99) mg/dL Calcium 8.1 L (8.4-10.2) mg/dL Total Protein 5.7 L (6.3-8.2) g/dL Albumin 3.1 L (3.5-5.0) g/dL Assessment and Plan Assessment: Low back pain Leukocytosis Elevated inflammatory markers History of UTI Other medical comorbidities Plan: -Appreciate jewelry consultant and team management. -Awaiting MRI results of the Lumbar Spine. -Activity: Ambulate QID, Limit lifting bending twisting to less than 5 lbs. Use walker or cane if needed for stability. -Daily PT/OT, increase ambulation strength and balance. -Pain control: Adequate at this time -Encourage IS 10x/hr -Dispo: Clinically pending, further recommendations to follow *I reviewed and discussed this case with my attending Dr. Blanc, whom has reviewed this chart and films and is in agreement with assessment and plan of care as outlined above. I have personally seen and examined the patient, performed the documentation and the assessment and plan as written. Number of minutes spent on the visit: 20m.
[2025-02-28] MEDS: VANCOMYCIN TROUGH DUE 1 EACH MISC MISCELLANE ONE (10:29)
--- NOTE | 2025-02-28 14:31 | MR ---
EXAMINATION TYPE: MR lumbar spine wo/w con DATE OF EXAM: 02/28/2025 1:22 PM COMPARISON: 02/27/2025. CLINICAL INDICATION: Female, 29 years old with history of Low back pain with fevers; [facility], TECHNIQUE: Multi planar, multi sequence imaging was performed utilizing: T1-weighted, T2-weighted, a nd turbo inversion recovery imaging of the lumbar spine. IV Contrast: 8 mL Gadobutrol (None, if empty) FINDINGS: Alignment: The lumbar vertebral bodies have preserved heights and alignment. Cord: The conus medullaris and the distal spinal cord appear unremarkable with regards to their signa l intensity and morphology. No abnormal postcontrast enhancement. Bones/Discs: No significant degeneration. Intervertebral disc signal is maintained. No abnormal inver marhsa recovery signal to suggest bony edema. No abnormal postcontrast enhancement. T12-L1: No evidence of significant spinal canal stenosis or neural foraminal stenosis. L1-L2: No evidence of significant spinal canal stenosis or neural foraminal stenosis. L2-L3: No evidence of significant spinal canal stenosis or neural foraminal stenosis. L3-L4: No evidence of significant spinal canal stenosis or neural foraminal stenosis. L4-L5: No evidence of significant spinal canal stenosis or neural foraminal stenosis. L5-S1: The disc has a rounded posterior morphology without significant spinal canal stenosis. Facet j oint arthropathy with mild bilateral neural foraminal stenosis. No significant spinal canal or neural foraminal stenosis in the remainder of the visualized levels. Other findings: None. IMPRESSION: No definitive evidence of disc herniation or significant spinal canal stenosis. No abnormal postcontr ast enhancement. [facility], , 02/28/2025 2:28 PM
[2025-02-28 15:08] LABS: Basophils # (A) 0.07 X 10*3/uL (0.00-0.10); Basophils % (A) 0.4 %; Eosinophils # (A) 0.57 X 10*3/uL (0.04-0.35); Eosinophils % (A) 3.5 %; HCT 31.9 % (37.2-46.3); HGB 10.4 g/dL (12.0-15.0); Immature Grans, Automated 0.40 %; Lymphocytes # (A) 1.96 X 10*3/uL (0.90-5.00); Lymphocytes % (A) 12.1 %; MCH 30.8 pg (27.0-32.0); MCHC 32.6 g/dL (32.0-37.0); MCV 94.4 FL (80.0-97.0); Monocytes # (A) 0.66 X 10*3/uL (0.20-1.00); Monocytes % (A) 4.1 %; NRBC Per 100 WBC 0 X 10*3/uL (0.00-0.01); Neutrophils # (A) 12.85 X 10*3/uL (1.80-7.70); Neutrophils % (A) 79.5 %; Platelet Count 367 X 10*3/uL (140-440); RBC 3.38 X 10*6/uL (4.10-5.20); RDW 13.0 % (11.5-14.5); WBC 16.18 X 10*3/uL (4.50-10.00)
--- NOTE | 2025-02-28 21:59 | P.PN ---
Progress Note - Text Progress Note Date: 02/28/25 MRI reviewed. No evidence of infective process noted. There is HNP at T11-12 that is incompletely visualized on MRI with moderate central stenosis on the available films. If LE weakness or conus like sx would recommend MRI T spine and C spine due to possible infective process as well as current sx. Agree with abx, and medical treatment.
--- NOTE | 2025-02-28 22:50 | P.PN ---
Subjective Progress Note Date: 02/28/25 Principal diagnosis: Reason for follow-up is fever and leukocytosis Patient is a 29-year-old female with a past medical history significant for depression ADHD presenting the hospital for evaluation of lower back pain that apparently started 2 hours before presenting to the hospital she did have low-grade fever elevated white count prompting this consultation. On today's evaluation that is 02/28/2025,the patient did have improvement in pattern and is afebrile this morning, patient is on room air not requiring supplemental oxygen and mentioned breathing comfortably with no chest pain or cough.Patient denies having any nausea or vomiting, no abdominal pain and no diarrhea mention improvement in the lower back pain. Patient white count is mildly down to 16.18 creatinine 0.61 Vanco trough is 19.6 blood cultures are pending Objective - Vital Signs Vital signs: Vital Signs Temp 98.4 F 02/28/25 06:52 Pulse 101 H 02/28/25 06:52 Resp 16 02/28/25 06:52 BP 108/67 02/28/25 06:52 Pulse Ox 90 L 02/28/25 06:52 FiO2 Intake & Output 02/27/25 02/28/25 02/28/25 18:59 06:59 18:59 Weight 86.183 kg Other: Voiding Method Toilet Toilet # Voids 1 # Bowel Movements 0 - Exam Middle-age female lying in bed in no distress Unlabored breathing Awake alert oriented x 3 - Labs CBC & Chem 7: 02/28/25 08:17 02/28/25 08:17 Labs: Abnormal Lab Results - Last 24 Hours (Table) 02/28/25 Range/Units 08:17 Chloride 111 H (98-107) mmol/L Carbon Dioxide 20 L (22-30) mmol/L BUN 5 L (7-17) mg/dL Glucose 121 H (74-99) mg/dL Calcium 8.1 L (8.4-10.2) mg/dL Total Protein 5.7 L (6.3-8.2) g/dL Albumin 3.1 L (3.5-5.0) g/dL Assessment and Plan (1) Sepsis Current Visit: Yes Status: Acute Code(s): A41.9 - SEPSIS, UNSPECIFIED ORGANISM SNOMED Code(s): 99025472 (2) Low back pain Current Visit: Yes Status: Acute Code(s): M54.50 - LOW BACK PAIN, UNSPECIFIED SNOMED Code(s): 130089615 (3) SIRS (systemic inflammatory response syndrome) Current Visit: Yes Status: Acute Code(s): R65.10 - SIRS OF NON-INFECTIOUS ORIGIN W/O ACUTE ORGAN DYSFUNCTION SNOMED Code(s): 490911589 Plan: 1patient presented hospital with sepsis in this patient who did have fever tachycardia elevated white count as well as elevated lactic acid meeting criteria for SIRS/sepsis source could be lumbar discitis as the patient did have significant lower back pain and currently no other obvious focus of infection patient chest x-ray was reported negative CT abdominal pelvis did not show any acute abnormality and the patient had abdominal tenderness urine has been negative 2blood culture has been obtained which are currently pending awaiting inflammatory markers 3patient did have MRI of the lumbosacral spine completed results pending at the time of evaluation. 4will continue with Rocephin and vancomycin while awaiting further workup to be completed Dictation was produced using [employer] dictation software. please excuse any grammatical, word or spelling errors. Time with Patient: Less than 30
[2025-03-01 07:14] VITALS: BP 105/69; PULSE 87; RESP 16; TEMP 97.9
[2025-03-01 07:57] LABS: Basophils # (A) 0.05 X 10*3/uL (0.00-0.10); Basophils % (A) 0.6 %; Eosinophils # (A) 0.61 X 10*3/uL (0.04-0.35); Eosinophils % (A) 7.2 %; HCT 31.6 % (37.2-46.3); HGB 10.3 g/dL (12.0-15.0); Immature Grans, Automated 0.40 %; Lymphocytes # (A) 2.76 X 10*3/uL (0.90-5.00); Lymphocytes % (A) 32.7 %; MCH 30.5 pg (27.0-32.0); MCHC 32.6 g/dL (32.0-37.0); MCV 93.5 FL (80.0-97.0); Monocytes # (A) 0.60 X 10*3/uL (0.20-1.00); Monocytes % (A) 7.1 %; NRBC Per 100 WBC 0 X 10*3/uL (0.00-0.01); Neutrophils # (A) 4.39 X 10*3/uL (1.80-7.70); Neutrophils % (A) 52.0 %; Platelet Count 344 X 10*3/uL (140-440); RBC 3.38 X 10*6/uL (4.10-5.20); RDW 12.8 % (11.5-14.5); WBC 8.44 X 10*3/uL (4.50-10.00)
[2025-03-01 08:12] LABS: ALT 38 U/L (8-44); AST 31 U/L (13-35); Albumin 3.4 g/dL (3.8-4.9); Albumin/Globulin Ratio 1.70 Ratio (1.60-3.17); Alkaline Phosphatase 81 U/L (41-126); Anion Gap 8.90 mmol/L (4.00-12.00); BUN/Creat Ratio 10.17 Ratio (12.00-20.00); Blood Urea Nitrogen 6.1 mg/dL (9.0-27.0); Calcium 8.5 mg/dL (8.7-10.3); Carbon Dioxide 23.1 mmol/L (21.6-31.8); Chloride 112 mmol/L (96-109); Globulin 2.0 g/dL (1.6-3.3); Glucose 96 mg/dL (70-110); Potassium 4.2 mmol/L (3.5-5.5); Sodium 144 mmol/L (135-145); Total Protein 5.4 g/dL (6.2-8.2)
[2025-03-02] MEDS ORDERED: VANCOMYCIN TROUGH DUE 1 EACH MISC MISCELLANE ONE (09:00)
--- NOTE | 2025-03-04 11:35 | CDI ---
Documentation Clarification Form Date: 03/04/2025 11:19:53 AM From: Carmen Phillips Admit Date: 02/27/2025 04:36:00 AM Patient Name: Sandy Avilez Visit Number: [id number] Discharge Date: 03/01/2025 10:37:00 AM ATTENTION: The Clinical Documentation Specialists (CDI) and [facility] Coding Staff appreciate your assistance in clarifying documentation. Please respond to the clarification below the line at the bottom and electronically sign. The CDI & [facility] Coding staff will review the response and follow-up if needed. Please note: Queries are made part of the Legal Health Record. If you have any questions, please contact the author of this message via ITS. Doctor/Provider: Juan Miguel Varner Per ID consult and 02/28 PN, Sepsis and SIRS is documented was documented. Per H and P assessment "She may have a diskitis." Based on this information and the findings below, is there an additional diagnosis that is clinically appropriate for this patient? History/Risk Factors: Patient with elevated WBC's, fever, Lactic acidosis. Meets SIRS criteria per ID. Clinical Indicators: WBC 17.74 Lactic acid: 2.1 Blood cultures: Vitals signs: 98.1 - 100.3, 110 bpm, 113/49 to 89/53, 98% RA Treatment: IV antibiotics ID Consult: Sepsis Antibiotics: Rocephin and Vancomycin Is there an additional diagnosis that is clinically appropriate for this patient? [ ] Sepsis, present on admission due to diskitis [ ] Sepsis, developed during stay, due to diskitis not present on admission [ ] Severe Sepsis with organ failure [ ] Sepsis ruled out [ ] SIRS, without underlying infectious process [ ] No additional diagnosis/not clinically significant [ ] Other, please specify [ ] Unable to determine SIRS Criteria: 2 or more of the following may indicate SIRS Temperature < 96.8F (36C) or > 101.0F (38.3C) Heart Rate > 90 bpm Respiratory Rate > 20 breaths/min or PaCO2 < 32 mmHg White Blood Cell Count > 12,000 or < 4,000 cells/mm3 or > 10% bands MTDD
--- NOTE | 2025-03-06 22:43 | PN ---
PROGRESS NOTE Sepsis ruled in due to diskitis. MMODL / IJN: [id number] /
== END 2025-03-01 10:37 | disposition left against medical advice (07) | DRG 720 ==
LOC: EC 23:08 → 4SSUR 02-27 04:36
PROVIDERS: ADMIT Family Medicine; ATTEND Family Medicine
DX: A41.9 Sepsis, unspecified organism (principal); E86.0 Dehydration; E87.20 Acidosis, unspecified; G89.29 Other chronic pain; M51.24 Other intervertebral disc displacement, thoracic region; Z87.440 Personal history of urinary (tract) infections; M62.830 Muscle spasm of back; F32.A Depression, unspecified; F90.9 Attention-deficit hyperactivity disorder, unspecified type; R30.9 Painful micturition, unspecified; Z11.52 Encounter for screening for COVID-19; Z28.310 Unvaccinated for COVID-19
CPT/HCPCS: 36415; 71046; 72158; 74176; 80053; 80202; 81001; 83605; 83690; 84703; 85025; 85652; 86140; 87040; 87636; 96361; 96365; 96366; 96375; 99285